=== PATIENT | female | born 1945 | race Caucasian/White ===

== ENCOUNTER 2020-02-17 15:33 | Outpatient (CLI) | payer MEDICARE, OTHER, SELFPAY ==
--- NOTE | 2020-02-17 15:39 | XR_ITS ---
WS: [id number] DEXA (DUAL ENERGY X-RAY ABSORPTIOMETRY) Bone mineral density was performed using a [employer] machine. HISTORY: OSTEOPOROSIS COMPARISON: 07/06/2015 Lumbar spine BMD (L1-L4): 0.740 g/cm2 T score: -3.7 Z score: -1.7 Total hip BMD: Left: 0.750 g/cm2. T score: -2.0 Z score: -0.3 Right: 0.762 g/cm2. T score: -1.9 Z score: -0.2 10 year probability of a major osteoporotic fracture is 30%. Compared to the prior study from 07/06/2015. Lumbar spine bone mineral density has decreased by 3.3%. Bilateral hips bone mineral density has decreased by 1.0%. XR/XR DEXA axial skeleton* [id number] IMPRESSION: OSTEOPOROSIS based upon the WHO classification for females. Significant decreas e in bone mineral density in the lumbar spine since the prior study.
== END 2020-02-17 15:34 | disposition home or self-care (01) ==
LOC: RADWPI 15:38
PROVIDERS: Family Provider Internal Medicine; PCP Internal Medicine; Visit Provider Internal Medicine
DX: M81.0 Age-related osteoporosis without current pathological fracture (principal)
CPT/HCPCS: 77080

== ENCOUNTER 2020-03-11 10:17 | Outpatient (CLI) | payer MEDICARE, OTHER, SELFPAY ==
--- NOTE | 2020-03-11 | MR_ITS ---
WS: [id number] MRI RIGHT KNEE NONCONTRAST TECHNIQUE: Axial PD, coronal PD fat sat, coronal PD, sagittal PD, and sagittal PD fat-sat images obta ined. CLINICAL INFORMATION: RIGHT KNEE INTERNAL DERANGEMENT COMPARISON: None. FINDINGS: Distal quadriceps and patella tendons are intact. Hypertrophic patella. Anterior and posterior crucia te ligaments are normal. Normal medial and lateral meniscus. No acute meniscal tears. Chronic intrasu bstance signal abnormality involving the posterior horn medial meniscus. Chronic thinning of the medi al and lateral meniscus. 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 Associated subchondral edema in the late ral patella. Focal osteochondral defect measuring 10 mm. Normal medial and lateral collateral ligamen ts. Normal popliteal fossa. MR/MR knee RT wo con* [id number] IMPRESSION: 1. Anterior and posterior cruciate ligaments are intact. 2. No acute appearing meniscal tears. 3. 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 4. Normal medial and lateral patellar retinaculum. 5. Normal popliteal fossa.
== END 2020-03-11 10:18 | disposition home or self-care (01) ==
LOC: RADWPI 10:22
PROVIDERS: Family Provider Internal Medicine; PCP Internal Medicine; Visit Provider Internal Medicine
DX: M23.91 Unspecified internal derangement of right knee (principal); M22.41 Chondromalacia patellae, right knee
CPT/HCPCS: 73721

== ENCOUNTER 2020-04-15 06:00 | Outpatient (RCR) | payer MEDICARE, OTHER, SELFPAY | END 2020-04-24 23:59 | disposition home or self-care (01) | LOC: SPT 06:00 | PROVIDERS: PCP Internal Medicine; Referring Provider Orthopaedic Surgery; Visit Provider Orthopaedic Surgery | DX: S80.00XA Contusion of unspecified knee, initial encounter (principal); M22.2X1 Patellofemoral disorders, right knee; X58.XXXA Exposure to other specified factors, initial encounter | CPT/HCPCS: 97110; 97161 ==

== ENCOUNTER 2020-04-25 06:00 | Outpatient (RCR) | payer MEDICARE, OTHER, SELFPAY | END 2020-05-12 23:00 | disposition home or self-care (01) | LOC: SPT 06:00 | PROVIDERS: PCP Internal Medicine; Referring Provider Orthopaedic Surgery; Visit Provider Orthopaedic Surgery | DX: S80.01XD Contusion of right knee, subsequent encounter (principal); M22.2X1 Patellofemoral disorders, right knee | CPT/HCPCS: 97110 ==

== ENCOUNTER 2020-05-27 14:57 | Outpatient (CLI) | payer MEDICARE, OTHER, SELFPAY ==
--- NOTE | 2020-05-27 15:04 | MM_ITS ---
WS: [id number] BILATERAL DIGITAL SCREENING MAMMOGRAPHY WITH CAD CLINICAL INFORMATION: SCREENING HISTORY: Screening mammogram. No current complaints. COMPARISON: March 28, 2019 TECHNIQUE: Bilateral CC and MLO views. FINDINGS: Scattered fibroglandular densities bilaterally. No suspicious focal mass, asymmetry, calcifications, or architectural distortion. No evidence of malignancy. Dystrophic and coarse calcifications left pepe ast are stable. MM/[place] [id number] IMPRESSION: BI-RADS: 2-Benign FOLLOW UP: 1 Year Follow-up Recommend return to annual screening mammography.
== END 2020-05-27 14:58 | disposition home or self-care (01) ==
LOC: RADSHAW 15:02
PROVIDERS: PCP Internal Medicine; Visit Provider Internal Medicine
DX: Z12.31 Encounter for screening mammogram for malignant neoplasm of breast (principal)
CPT/HCPCS: 77067

== ENCOUNTER 2021-08-01 15:00 | Outpatient (CLI) | payer MEDICARE, OTHER, SELFPAY ==
--- NOTE | 2021-08-01 15:22 | MM_ITS ---
WS: [id number] BILATERAL DIGITAL SCREENING MAMMOGRAPHY WITH CAD CLINICAL INFORMATION: SCREEN HISTORY: Screening mammogram. No current complaints. COMPARISON: May 27, 2020 TECHNIQUE: Bilateral CC and MLO views. FINDINGS: Scattered fibroglandular densities bilaterally. Dystrophic calcifications LEFT breast unchanged. No s uspicious focal mass, asymmetry, calcifications, or architectural distortion. No evidence of malignan cy. MM/[place] [id number] IMPRESSION: BI-RADS: 2-Benign FOLLOW UP: 1 Year Follow-up Recommend return to annual screening mammography.
== END 2021-08-01 15:01 | disposition home or self-care (01) ==
LOC: RADSHAW 15:06
PROVIDERS: PCP Internal Medicine; Visit Provider Internal Medicine
DX: Z12.31 Encounter for screening mammogram for malignant neoplasm of breast (principal)
CPT/HCPCS: 77067

== ENCOUNTER 2022-08-09 11:45 | Outpatient (CLI) | payer MEDICARE, OTHER, SELFPAY ==
--- NOTE | 2022-08-09 12:09 | MM_ITS ---
WS: [id number] Bilateral screening 3D tomosynthesis digital mammogram, 08/09/2022 Clinical Data: SCREENING Comparison: 08/01/2021, 05/27/2020, 04/28/2019, 02/05/2018, 01/23/2017, 01/11/2016, 01/04/2015, 01/02/2014, 10/01, 06/28/2011, 06/20/2010, 06/11/2009, 06/03/2008, 05/07/2007, 04/10/2006. Findings: The breast parenchymal pattern shows fibroglandular tissue. No spiculated masses or clustered calcifi cations are seen. There are no secondary signs of carcinoma. There are 2 benign calcifications in the left breast unchanged. MM/[place] [id number] Impression: 1. Negative bilateral mammogram unchanged. 2. Recommend annual screening mammograms. BIRADS: 1-Negative FOLLOW UP: 1 Year Follow-up The CAD mechanical car checker was used.
== END 2022-08-09 11:46 | disposition home or self-care (01) ==
PROVIDERS: PCP Internal Medicine; Visit Provider Internal Medicine
DX: Z12.31 Encounter for screening mammogram for malignant neoplasm of breast (principal)
CPT/HCPCS: 77063; 77067

== ENCOUNTER → 2023-01-11 11:01 | Outpatient (BNVA) | payer MEDICARE, OTHER, SELFPAY | PROVIDERS: PCP Internal Medicine; Visit Provider Podiatrist Foot & Ankle Surgery | DX: M21.612 Bunion of left foot (principal); L90.9 Atrophic disorder of skin, unspecified; G57.92 Unspecified mononeuropathy of left lower limb | CPT/HCPCS: 73630; 99204 ==

== ENCOUNTER 2023-08-13 10:26 | Outpatient (CLI) | payer MEDICARE, SELFPAY ==
--- NOTE | 2023-08-13 10:32 | MM_ITS ---
WS: [id number] BILATERAL SCREENING DIGITAL TOMOSYNTHESIS MAMMOGRAM WITH CAD HISTORY: SCREENING COMPARISON: 08/09/2022, 08/01/2021 and 05/27/2020 Bilateral CC and MLO views with tomosynthesis and synthetic mammography submitted. Computer aided det ection analyzed. Breast composition: There are scattered areas of fibroglandular density. No suspicious masses, microc alcifications or architectural distortion. Benign coarse calcification central LEFT breast. Negative RIGHT breast. IMPRESSION: MM/[place] [id number] BI-RADS: 2-Benign FOLLOW UP: 1 Year Follow-up
== END 2023-08-13 10:27 | disposition home or self-care (01) ==
LOC: RAD 10:27
PROVIDERS: PCP Internal Medicine; Visit Provider Internal Medicine
DX: Z12.31 Encounter for screening mammogram for malignant neoplasm of breast (principal); R92.323 Mammographic fibroglandular density, bilateral breasts; R92.1 Mammographic calcification found on diagnostic imaging of breast
CPT/HCPCS: 77063; 77067

== ENCOUNTER 2024-03-10 11:40 | Outpatient (CLI) | payer MEDICARE, SELFPAY ==
[2024-03-10 11:53] VITALS: BMI 23.1
--- NOTE | 2024-03-10 11:53 | ECG_ITS ---
[facility] Test Date: 2024-03-10 Pat Name: Giuliana Jones Department: Room: Gender: Female System Operator: Hussain Dumont : 1945 Requested By: Davie Barrios Order Number: [id number] Easton MD: Domo Novoa M.D. Interpretive Statements NAME OF STUDY: TREADMILL STRESS TEST INDICATION: [CP, ] EXERCISE DATA: The patient was exercised by Brent protocol. Baseline heart rate was 82 beats per minute. Baseline blood pressure was 101/76 millimeters of mercury. Maximal predicted heart rate was 144 beats per minute. Maximum heart rate achieved was 131, which was 90% of the maximum predicted heart rate. Maximum blood pressure was 168/77 millimeters of mercury. Total exercise time was 6 minutes and 11 seconds. Maximum METs achieved was 10.2. The reason for ending the test was maximal effort achieved. The patient complained of shortness of breath/jaw pain during the stress test, which then resolved at the end of the test. ELECTROCARDIOGRAM: BASELINE: Showed sinus rhythm, normal axis, minimal baseline ST depressions in the inferior leads. [] EXERCISE: At the peak exercise level, [] Significant 2-[address] depressions seen in leads II, III, aVF and in leads V4-V6. RECOVERY: During the recovery period, heart rate dropped appropriately. No significant ST-T changes in the recovery suggestive of ischemia noted. [] CONCLUSION: 1. Exercise capacity is fair 2. Heart rate response was appropriate 3. Blood pressure response was appropriate. 4. Symptoms suggestive of ischemia. 5. Stress test is abnormal and shows ischemia in the inferior and anterolateral/lateral leads. Electronically Signed On 03-11-2024 8:07:00 CDT by Domo Novoa M.D. [id number]
[2024-03-10 12:21] VITALS: BP 125/78; PULSE 67
--- NOTE | 2024-03-10 13:58 | XR_ITS ---
WS: [id number] DEXA (DUAL ENERGY X-RAY ABSORPTIOMETRY) Bone mineral density was performed using a [employer] machine. HISTORY: POSTMENOPAUSAL COMPARISON: 02/17/2020 Lumbar spine BMD (L1-L4): 0.713 g/cm2 T score: -3.9 Z score: -1.9 Total hip BMD: Left: 0.740 g/cm2. T score: -2.1 Z score: -0.2 Right: 0.760 g/cm2. T score: -2.0 Z score: 0.0 10 year probability of a major osteoporotic fracture is 32.0%. Compared to the prior study from 02/17/2020. Lumbar spine bone mineral density has decreased by 3.6%. Bilateral hips bone mineral density has decreased by 0.8%. XR/XR DEXA axial skeleton* [id number] IMPRESSION: OSTEOPOROSIS based upon the WHO classification for females. Significant decrease in bone mineral density within the lumbar spine since the prior study.
== END 2024-03-10 11:41 | disposition home or self-care (01) ==
PROVIDERS: PCP Internal Medicine; Visit Provider Internal Medicine
DX: Z13.820 Encounter for screening for osteoporosis (principal); Z78.0 Asymptomatic menopausal state; M81.0 Age-related osteoporosis without current pathological fracture; R94.39 Abnormal result of other cardiovascular function study
CPT/HCPCS: 77080; 93017

== ENCOUNTER → 2024-03-12 08:29 | Outpatient (BNVA) | payer MEDICARE, SELFPAY | PROVIDERS: PCP Internal Medicine; Visit Provider Internal Medicine | DX: I20.9 Angina pectoris, unspecified (principal) | CPT/HCPCS: 99204 ==

== ENCOUNTER 2024-03-31 08:32 | Inpatient (IN) | payer MEDICARE, SELFPAY ==
[2024-03-31] VITALS (23 sets, daily range): BP systolic 104–164; BP diastolic 62–85; PULSE 66–87; RESP 15–28; TEMP 36.4–36.7; O2SAT 95–98; BMI 23.1; BMI 23.4
--- NOTE | 2024-03-31 06:00 | XACV_ITS ---
Ht: 163 cm Wt: 61 kg BSA: 1.67 m2 Gender: Female : 1945 Any Known Allergies: Other Exam Priority: Routine Procedure(s): Procedure Description: Diagnostic procedure Procedure Description: Coronary Angiography Diagnostic Cath Status: Elective Diagnostic Findings * INDICATION: Worsening angina/ abnormal stress test. * Left Main has no significant disease. * Distal Right Coronary Artery to Right PDA: critical 95% stenosis, CHRISTIANO: 3 flow. * Proximal Left Anterior Descending: significant 80% stenosis, CHRISTIANO: 3 flow. * Mid Left Anterior Descending to Distal Left Anterior Descending: significant 80% stenosis, CHRISTIANO: 3 flow. * Mid Right Coronary Artery to Distal Right Coronary Artery: significant 80% stenosis, CHRISTIANO: 3 flow. * Mid Circumflex: obstructive 70% stenosis, CHRISTIANO: 3 flow. * Coronary angiography shows right dominance. Conclusions 1. Severe multivessel coronary artery disease. Recommendations * We will transfer patient to tertiary care center for heart team evaluation and CABG. * Continue aspirin. Interventional RX Recommendation: CABG Diagnostic RX Recommendation: CABG Anticoagulation: Heparin Pressures Phase:Rest AO : 125 / 67 ( 94 ) @ 9:07:00 AM 110 / 75 ( 93 ) @ 9:10:00 AM 108 / 73 ( 91 ) @ 9:13:00 AM Clinical Evaluation EBL: 5mL-10mL Procedural Details Procedure Consent Obtained. Admit Source: Out Patient. Pre-Procedure Time Out. Identified patient by full name and date of as verbalized by the patient/guarantor. Does the consent match the physician's order: Yes. Accurate & Complete Informed Consent: Yes. Inpatient/Outpatient History & Physical on Chart: Yes. If H&P is completed, is and addenduem needed: No; If yes, is the addendum complete: N/A. Visualize and Verify Site with Patient/Guarantor: N/A. Relevant Radiology Images available: N/A. The risks, benefits, and alternatives of sedation and/or procedure were discussed by physician. The patient agrees to continue. Leroy Agarwal RN, [employer] was relieved by RT Jaylni(R) as monitoring person. Procedure started. [facility] Clinical Fraility Score: 4: Vulnerable. 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 Chest Pain Symptom Assessment: Atypical Angina. Correct patient, site and procedure confirmed by cath team. Current diagnosis: Chest Pain. PERRLA. Strong, equal hand drone pilot bilaterally. Lungs clear x 5 lobes. IV Site on Arrival: 20 gauge in the left anticubital. IV Fluids: 0.9% NaCl at KVO. 0 mL infused prior to laborer powerhouse. Pre Procedural Pulses: bilateral dorsalis pedis was 1+. Pre Procedural Pulses: bilateral posterior tibial was 2+. Pre Procedural Pulses: bilateral radial was 3+. Oxygen started at 2liters/min via nasal canula. Baseline sample Acquired. HR: 76 BPM. Physician arrived. Physician scrubbed in. Immediate Pre-Procedure Time Out. Correct Patient: Yes; Correct Procedure: Yes; Correct Site: Yes; Correct Patient Position: Yes; Correct Supplies: Yes; Dried Flammable Prep: Yes; Blood Products Available: N/A;. Lidocaine 1% infiltrated to the right radial. Arterial access obtained. A 5 pashto TIG catheter in over wire. Multiple views taken of left coronary artery. Catheter redirected to the RCA. Multiple views taken of right coronary artery. Catheter removed over the exchange wire. Physician scrubbed out. Patient's family updated by Dr. Novoa. Side port of sheath attached to heparnized saline flush at KVO to maintain patency. A TR Band was successful obtaining hemostatsis at the Right Radial artery insertion site. Post Procedure: Pulses reassessed and unchanged. PERRLA. Strong, equal hand drone pilot bilaterally. No VTE prophylaxis required. Medication's Wasted: Lidocaine 1% = 18 mL. Medication's Wasted: Nitro = 49.8 mcg. Medication's Wasted: Heparin = 1000 units. Medication's Wasted: Other = Fentanyl 50mcg Versed 1 mg. Total IV fluids: 30 mL. Vital chart was stopped. Complications: None. Post-op diagnosis: CAD. Estimated blood loss: 5mL-10mL. Responsiveness - Normal response to verbal stimuli; alert and oriented, PERRLA. Airway - Unaffected, no intervention required; spontaneous ventilation. Circulation: W/N/L, pulses unchanged. Nausea/Vomiting: No. Procedure completed. Patient transferred by wheelchair to CPRU. Access Site Site: Right Radial artery Sheath Size: 6 Fr Hemostasis Method: TR Band Hemostasis Success: Successful Procedure Medications Start: 7:55 AM Stop: 7:55 AM Medication: Versed 1 mg and Fentanyl 25 mcg Amount: 1 Route: I.V. Start: 8:04 AM Stop: 8:04 AM Medication: Fentanyl Amount: 25 mcg Route: I.V. Start: 8:05 AM Stop: 8:05 AM Medication: Nitrogylcerin Amount: 200 mcg Route: I.A. Start: 8:07 AM Stop: 8:07 AM Medication: Heparin Amount: 5000 units Route: I.V. I, the attending physician, have reviewed and verified all procedure medications. Yes, all medications given per verbal order History/Risk Factors Hypertension: No Dyslipidemia: No Peripheral Arterial Disease (PAD): No Myocardial Infarction (IN): No Obesity: No Renal Disease: No Tobacco Use: Never Prior Interventions PCI: No CABG: No Valve Surgery: No Report Signatures Finalized by Domo Novoa MD on 03/31/2024 10:49 AM
[2024-03-31 06:34] LABS: Basophils % 0.9 %; Eosinophils # 0.1 10^3/uL (0.0-0.8); Eosinophils % 2.8 %; Hematocrit 42.4 % (36-47); Lymphocytes # 1.6 10^3/uL (0.8-4.8); Lymphocytes % 36.3 %; Mean Corpuscular HGB Conc 33.7 g/dL (30-55); Mean Corpuscular Hemoglobin 30.6 pg (27-33); Mean Corpuscular Volume 90.8 fl (85-98); Mean Platelet Volume 10.2 fL (7.4-10.4); Monocytes # 0.5 10^3/uL (0.2-0.9); Monocytes % 11.7 %; Neutrophils # 2.05 10^3/uL (1.8-7.7); Neutrophils % 48.1 %; Nucleated Red Blood Cells % 0 %; Platelet Count 283 10^3/cmm (157-399); Red Blood Count 4.67 10^6/uL (3.85-5.65); Red Cell Distribution Width 12.4 % (12.1-15.1); White Blood Count 4.27 10^3/uL (3.29-11.43)
[2024-03-31 06:48] LABS: Anion Gap 12.9 (5-19); Blood Urea Nitrogen 16 mg/dL (8-23); Calcium 9.1 mg/dL (8.5-10.5); Carbon Dioxide 27 mmol/L (22-29); Chloride 98 mmol/L (98-107); Creatinine Clr Calc Pharmacy 54.1299; Glucose 98 mg/dL (65-115); Osmolality Calculated 279 mOsm/kg (285-295); Potassium 3.9 mmol/L (3.5-5.1); Sodium 134 mmol/L (136-145)
--- NOTE | 2024-03-31 07:51 | P.HPUD_ITS ---
Surgery/Procedure H&P Update DATE OF PROCEDURE: March 31, 2024 DATE H&P PERFORMED: 03/12/24 H&P UPDATE INFORMATION: I have reviewed H&P completed within last 30 days, I have examined patient prior to procedure and No changes to prior documentation PREOP DIAGNOSIS: Worsening angina/ abnormal stress test PRIMARY INDICATION FOR PROCEDURE: Worsening angina/ abnormal stress test PLANNED PROCEDURE: Operation Date: 03/31/24 07:00 Proposed Procedures p Cardiac Catheterization - [facility] w/wo LV & Coros(Left) - Domo Novoa M.D Possible percutaneous coronary intervention PATIENT REASSESSED PRIOR TO SEDATION, WITH NO CHANGE NOTED: Yes PHYSICAL EXAM: alert, oriented x 3, clear to auscultation bilaterally and regular rate & rhythm AIRWAY EVAL/ANESTHESIA PLAN: normal airway, ASA III, Local Anesthesia, Risks, benefits & alternatives of sedation and/or procedure discussed and Patient agrees to continue as planned ADDITIONAL INFORMATION: Moderate sedation
--- NOTE | 2024-03-31 08:47 | PM.MISC ---
Miscellaneous Note Purpose of Documentation: Procedure note Note: Patient has been having worsening chest pain symptoms. She had an nighttime symptoms few times and has been having a resting chest pains now. Stress test was markedly abnormal. Coronary angiogram demonstrated severe multivessel CAD with the proximal (80%) and mid LAD stenosis (80%). Mid left circumflex artery has 70% stenosis. Mid RCA has 70 to 80% stenosis. Distal RCA into PDA has 95 to 99% stenosis. Given severe multivessel disease, worsening angina concerning for unstable angina we will admit patient to hospital and arrange for transfer to have heart team evaluation and CABG.
--- NOTE | 2024-03-31 08:52 | USCV_ITS ---
Giuliana Jones Age: 78 Gender: F : 1945 Exam Date: 03/31/2024 15:20 Ordering Phys: Domo Novoa M.D ([email or web address]) Technologist: Exam Location[place] [facility] [place] Indication: cp BP: 102 / 53 HR: 70 Rhythm: Sinus Technical Quality: Adequate MEASUREMENTS (Male / Female) Normal Values 2D ECHO LV Diastolic Diameter PLAX 3.8 cm 4.2 - 5.9 / 3.9 - 5.3 cm IVS Diastolic Thickness 1.0 cm 0.6 - 1.0 / 0.6 - 0.9 cm IVS Systolic Thickness 1.3 cm LVPW Diastolic Thickness 1.1 cm 0.6 - 1.0 / 0.6 - 0.9 cm LVPW Systolic Thickness 1.0 cm LVOT Diameter 1.9 cm LV Ejection Fraction 2D Teich 69.6 % LV Ejection Fraction MOD 4C 70.1 % LV Ejection Fraction MOD 2C 66.5 % LV Ejection Fraction 2C AL 65.9 % LA Diameter 2.9 cm RA Systolic Volume 4C AL 17.6 ml RA Systolic Volume 4C MOD 16.2 ml Aorta at Sinotubular Diameter 2.8 cm M-MODE LA Ao Ratio MM 1.2 AV Cusp Separation MM 2.4 cm DOPPLER AV Peak Velocity 122.0 cm/s LVOT Peak Velocity 104.0 cm/s AV Area Cont Eq vti 2.5 cm squared AV Area Cont Eq pk 2.4 cm squared MV Peak Velocity 103.0 cm/s MV Area PHT 3.0 cm squared Mitral E to A Ratio 0.9 TV Peak Velocity 185.0 cm/s TR Peak Velocity 189.0 cm/s TR Peak Gradient 14.3 mmHg TV Peak E Velocity 72.0 cm/s Right Atrial Pressure 3.0 mmHg Pulmonary Artery Systolic Pressu 17.3 mmHg PV Peak Velocity 95.0 cm/s FINDINGS Left Ventricle Left ventricle is normal in size. LV systolic function is normal with EF of 55 to 60%. No regional wall motion abnormalities are seen. Grade 1 diastolic dysfunction Right Ventricle Normal in size and function. Right Atrium Normal in size. Left Atrium Normal in size Mitral Valve Structurally normal mitral valve. Mild mitral regurgitation. Aortic Valve Structurally normal aortic valve. No significant stenosis or regurgitation. Tricuspid Valve Mild tricuspid regurgitation. Pulmonary artery systolic pressure is normal. Pulmonic Valve Not well-visualized. Pericardium Normal. Aorta Normal in size IVC Not well visualized CONCLUSIONS LV systolic function is normal with EF of 55 to 60%. Grade 1 diastolic dysfunction. Mild mitral regurgitation. Mild tricuspid regurgitation. No comparison studies are available. Domo Novoa MD (Electronically Signed) Final Date: 01 April 2024 08:03 S
[2024-03-31] MEDS: sodium chloride 0.9% 1,000 ML 100 ML IV (09:10)
--- NOTE | 2024-03-31 10:21 | ECG_ITS ---
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 Measurements Intervals Kyle Rate: 75 P: 20 ND: 196 QRS: 1 QRSD: 80 T: 28 QT: 365 QTc: 408 Interpretive Statements SINUS RHYTHM POSSIBLE ANTERIOR MYOCARDIAL INFARCTION , OF INDETERMINATE AGE [30 ms Q WAVE IN V3/V4, OR R < 0.2 mV IN V4] MODERATE T-WAVE ABNORMALITY, CONSIDER LATERAL ISCHEMIA [-0.1+ mV T-WAVE IN I/aVL/V5/V6] No previous ECG available for comparison Electronically Signed On 04-01-2024 01:31:38 CDT by Ferny Gomez M.D. [id number]
--- NOTE | 2024-03-31 10:32 | PC.NURSE ---
received from cardiac labor specialist into room 112-2,via w/c at 0910.report received.pt is alert and oriented x 4.denies pain at present.sr on monitor.right radial tr band on and inflated.right hand is warm to touch and with brisk capillary refill.palpable pulse noted distal to tr band.no hematoma formation noted.pt instructed in activity restrictions s/p radial artery procedure and instructed to notify staff for any bleeding,pain,numbness,sob..or for any concerns at all.pt verb understanding of instructions
[2024-03-31 10:39] LABS: Troponin(5th) Baseline < 6 ng/L (0-10)
[2024-03-31 12:30] LABS: Troponin 5 2HR 6.07 ng/L (0-10); Troponin 5 2HR Delta 0.07001 ABS# (0-10)
[2024-03-31] MEDS: oxybutynin 5 mg Tablet 2.5 MG PO (12:45)
[2024-03-31 15:44] LABS: Troponin 5 6HR 7.73 ng/L (0-10); Troponin 5 6HR Delta 1.73001 ng/L (0-12)
[2024-03-31] MEDS: acetaminophen 325 mg Tablet 650 MG PO (16:47)
[2024-03-31] MEDS: TRAMadol 50 mg Tablet PO (21:57)
[2024-03-31] MEDS: atorvastatin 40 mg Tablet PO (21:58)
[2024-04-01] VITALS (8 sets, daily range): BP systolic 107–140; BP diastolic 58–94; PULSE 59–99; RESP 12–22; TEMP 36.4–36.8; O2SAT 95–98
[2024-04-01 04:33] LABS: Basophils % 0.8 %; Eosinophils # 0.1 10^3/uL (0.0-0.8); Eosinophils % 2.5 %; Hematocrit 39.8 % (36-47); Lymphocytes # 1.3 10^3/uL (0.8-4.8); Lymphocytes % 25.6 %; Mean Corpuscular HGB Conc 32.7 g/dL (30-55); Mean Corpuscular Hemoglobin 30.5 pg (27-33); Mean Corpuscular Volume 93.4 fl (85-98); Mean Platelet Volume 10.5 fL (7.4-10.4); Monocytes # 0.5 10^3/uL (0.2-0.9); Monocytes % 10.4 %; Neutrophils # 3.09 10^3/uL (1.8-7.7); Neutrophils % 60.5 %; Nucleated Red Blood Cells % 0 %; Platelet Count 267 10^3/cmm (157-399); Red Blood Count 4.26 10^6/uL (3.85-5.65); Red Cell Distribution Width 12.5 % (12.1-15.1); White Blood Count 5.11 10^3/uL (3.29-11.43)
[2024-04-01 04:48] LABS: Anion Gap 16.5 (5-19); Blood Urea Nitrogen 15 mg/dL (8-23); Calcium 8.5 mg/dL (8.5-10.5); Carbon Dioxide 22 mmol/L (22-29); Chloride 104 mmol/L (98-107); Creatinine Clr Calc Pharmacy 52.3982; Glucose 105 mg/dL (65-115); Osmolality Calculated 287 mOsm/kg (285-295); Potassium 4.5 mmol/L (3.5-5.1); Sodium 138 mmol/L (136-145)
[2024-04-01] MEDS: acetaminophen 325 mg Tablet 650 MG PO ×2 (05:17→18:11)
[2024-04-01] MEDS: pantoprazole DR 40 mg Tablet PO (07:37)
[2024-04-01] MEDS: oxybutynin 5 mg Tablet 2.5 MG PO ×2 (09:48→18:08)
[2024-04-01] MEDS: aspirin 81 mg EC Tablet PO (09:48)
--- NOTE | 2024-04-01 10:17 | PC.CHAP ---
Pastoral Care Encounter/Spiritual Assessment Type of Contact [] Declined note taker visit [] Patient/Family/Request visit [] Outpatient visit [] Follow-up visit [] Physician referral [] Code/Alert [x] Routine visit [] Staff referral [] Actively dying [] Patient sleeping [] Family support [] [] Out of room [] Palliative care [] [] Receiving care in room [] Pre-surgical visit [] Trauma [] Long length of stay [] ICU visit [] Other: Relational/Emotional Strength [x] Patient feels connected with others/family/visitors/staff [] Distress [] Loneliness/isolation [] Abandonment Spirituality of Patient [x] Person of Angela [] Attends Scientologist of their Angela [x] Believes in Prayer [] Reads Bible or Latter-Day materials [] There are Spiritual issues to be addressed Creamery Worker Interventions [x] Prayer [x] Active listening [] Non-anxious presence [x] Spiritual/emotional support [] Crisis/trauma care [] Spiritual counseling [] Bereavement support [] Provided bereavement packet [] Provided Bible/devotional materials [] Provided toy/stuffed animal, coloring book to patient or family member [] Provided Communion [] Anointing/[place] [] Salvation [x] Completed spiritual assessment [] Other: Impact on Illness or Injury [] Angry [] Fearful [] Anxious [] Often cries [] Exhaustion [] Unable to work [] Unable to attend adventism [] Unable to walk/stand [] Unable to read [] Unable to drive [] Unable to eat/drink [] Unable to sleep [] Unable to be with family [] Patient intubated [] Other: Summary Time spent with patient 5 min
--- NOTE | 2024-04-01 18:02 | P.PN_ITS ---
Subjective 2 Subjective: Patient is stable. Had chest tightness last night. Currently chest pain free. Vitals/I&O/Wt Last Vital Signs Temp 98.2 F 04/01/24 16:00 Pulse 62 04/01/24 16:00 Resp 15 04/01/24 16:00 BP 107/58 04/01/24 16:00 Pulse Ox 97 04/01/24 16:00 O2 Del Method Room Air 04/01/24 16:00 04/01/24 04/01/24 04/01/24 06:59 14:59 22:59 Intake Total 960 / 960 Balance 960 / 960 Weight last 48 hrs Weight 137 lb 6.4 oz Weight 132 lb 8 oz Weight 135 lb Physical Exam 2 Narrative: GENERAL: Patient is alert, awake and oriented x3. [] NECK: No jugular vein distension. [] HEENT: No cyanosis. No icterus. No pallor. [] HEART: Regular S1 and S2. No murmur, rub or gallop. [] LUNGS: Clear to auscultate bilaterally. [] CENTRAL NERVOUS SYSTEM: Grossly nonfocal. [] EXTREMITIES: Lower extremities with 1+ edema bilaterally. Data 04/01/24 03:29 04/01/24 03:29 A&P Assessment and plan (1) Worsening angina: (2) Coronary artery disease: Plan Patient is presented with worsening anginal symptoms and coronary angiogram showed no severe multivessel CAD. She has been accepted for CABG at [facility]. Awaiting transfer pending bed availability. Continue aspirin at hide intensity statin. PRN nitro. If pain becomes more persistent, we will start nitro gtt. Troponins have not trended up significantly and echo shows normal LV function Attestations 2 Medical Necessity Statement*: Care expected to cross 2 midnights. Patient presented for outpatient coronary angiogram however has been having worsening symptoms of chest pain. Coronary angiogram shows a severe multivessel CAD. Awaiting transfer to tertiary care center for CABG. Coding Level of Care Code Acute Code for Chg Fwd Diagnoses Worsening angina I20.0 Coronary artery disease I25.10
[2024-04-01] MEDS: atorvastatin 40 mg Tablet PO (21:01)
[2024-04-01] MEDS: TRAMadol 50 mg Tablet PO (21:01)
[2024-04-01] MEDS: alum-mag-hydroxide-sime 30 mL UDC PO (21:09)
[2024-04-02] VITALS (7 sets, daily range): BP systolic 103–151; BP diastolic 51–94; PULSE 64–103; RESP 16–27; TEMP 36.7–37.1; O2SAT 95–98
[2024-04-02] MEDS: acetaminophen 325 mg Tablet 650 MG PO ×2 (06:11→14:17)
[2024-04-02] MEDS: pantoprazole DR 40 mg Tablet PO (08:38)
[2024-04-02] MEDS: aspirin 81 mg EC Tablet PO (08:38)
[2024-04-02] MEDS: oxybutynin 5 mg Tablet 2.5 MG PO (08:38)
--- NOTE | 2024-04-02 13:55 | P.TS_ITS ---
Transfer Summary Providers Date of Admission: 03/31/24 08:32 Date of Discharge/Transfer: 04/02/24 Attending Provider at Admission: Domo Novoa M.D Attending Provider at Transfer: Domo Novoa M.D Primary Care Provider: Davie Mejía DO Transfer Plans: Anticipated date of transfer: 04/02/24 . Receiving Facility: [facility] . Diagnoses at Discharge Discharge Diagnosis (1) Worsening angina: Status: Acute (2) Coronary artery disease: Status: Acute Reason for Visit Reason for Visit R94.39 Brief History: 78 year old with worsening chest pain symptoms and abnormal stress test here for coronary angiogram. Hospital Course Hospital Course Coronary angiogram demonstrated severe multivessel CAD. As patient has been having worsening symptoms even during the night, we admitted her to the hospital. She will be transferred to [facility] for CABG evaluation. Stayed stable hospitalization. Echo shows normal LV systolic function. Physical Exam Narrative: GENERAL: Patient is alert, awake and oriented x3. [] NECK: No jugular vein distension. [] HEENT: No cyanosis. No icterus. No pallor. [] HEART: Regular S1 and S2. No murmur, rub or gallop. [] LUNGS: Clear to auscultate bilaterally. [] CENTRAL NERVOUS SYSTEM: Grossly nonfocal. [] EXTREMITIES: Lower extremities with 1+ edema bilaterally. TS Data Studies Completed and Pending Completed Studies During Hospitalization Category Date Time Status [employer] request for service Routine Exams 03/31/24 06:00 Completed CV. echo complete* [id number] Routine Ultrasound 03/31/24 08:52 Completed Laboratory Last Values WBC 5.11 10^3/uL (3.29-11.43) 04/01/24 03:29 RBC 4.26 10^6/uL (3.85-5.65) 04/01/24 03:29 Hgb 13.00 g/dL (11.27-16.99) 04/01/24 03:29 Hct 39.8 % (36-47) 04/01/24 03:29 MCV 93.4 fl (85-98) 04/01/24 03:29 MCH 30.5 pg (27-33) 04/01/24 03:29 MCHC 32.7 g/dL (30-55) 04/01/24 03:29 RDW 12.5 % (12.1-15.1) 04/01/24 03:29 Plt Count 267 10^3/cmm (157-399) 04/01/24 03:29 MPV 10.5 fL (7.4-10.4) H 04/01/24 03:29 Neut % (Auto) 60.5 % 04/01/24 03:29 Lymph % (Auto) 25.6 % 04/01/24 03:29 Izard % (Auto) 10.4 % 04/01/24 03:29 Eos % (Auto) 2.5 % 04/01/24 03:29 Baso % (Auto) 0.8 % 04/01/24 03:29 Neut # (Auto) 3.09 10^3/uL (1.8-7.7) 04/01/24 03:29 Lymph # (Auto) 1.3 10^3/uL (0.8-4.8) 04/01/24 03:29 Izard # (Auto) 0.5 10^3/uL (0.2-0.9) 04/01/24 03:29 Eos # (Auto) 0.1 10^3/uL (0.0-0.8) 04/01/24 03:29 Baso # (Auto) 0.0 10^3/uL (0.0-0.1) 04/01/24 03:29 Nucleated RBC % (auto) 0 % 04/01/24 03:29 Nucleated RBCs # 0.0 /100WBC 04/01/24 03:29 Sodium 138 mmol/L (136-145) 04/01/24 03:29 Potassium 4.5 mmol/L (3.5-5.1) 04/01/24 03:29 Chloride 104 mmol/L (98-107) 04/01/24 03:29 Carbon Dioxide 22 mmol/L (22-29) 04/01/24 03:29 Anion Gap 16.5 (5-19) 04/01/24 03:29 BUN 15 mg/dL (8-23) 04/01/24 03:29 Creatinine 0.4 mg/dL (0.5-0.9) L 04/01/24 03:29 GFR Calculation Not Reportable 04/01/24 03:29 Glucose 105 mg/dL (65-115) 04/01/24 03:29 Calculated Osmolality 287 mOsm/kg (285-295) 04/01/24 03:29 Calcium 8.5 mg/dL (8.5-10.5) 04/01/24 03:29 Troponin T Baseline < 6 ng/L (0-10) 03/31/24 09:19 Troponin T 120 Minute 6.07 ng/L (0-10) 03/31/24 11:02 Delta Troponin T 0.83338 ABS# (0-10) 03/31/24 11:02 Troponin T Hi Sens 6Hr 7.73 ng/L (0-10) 03/31/24 15:12 Troponin T Hi Sens 6Hr Delta 1.27241 ng/L (0-12) 03/31/24 15:12 Recent Clincial Data Last Vital Signs Temp 98.0 F 04/02/24 11:20 Pulse 103 H 04/02/24 11:20 Resp 24 H 04/02/24 11:20 BP 151/94 04/02/24 11:20 Pulse Ox 95 04/02/24 11:20 O2 Del Method Nasal Cannula 04/02/24 11:20 Vital Signs Temp Pulse Resp BP Pulse Ox O2 Del Method 04/02/24 11:20 98.0 F 103 H 24 H 151/94 95 Nasal Cannula 04/02/24 06:56 98.0 F 72 27 H 131/75 98 Room Air 04/02/24 06:00 66 04/02/24 04:00 98.8 F 64 16 129/65 97 Room Air Intake & Output/Weight 03/31/24 04/01/24 04/02/24 04/03/24 06:59 06:59 06:59 06:59 Intake Total 1360 / 1360 1020 / 1020 600 / 600 Balance 1360 / 1360 1020 / 1020 600 / 600 Weight 135 lb 137 lb 6.4 oz 133 lb Vitals Last Vital Signs Temp 98.0 F 04/02/24 11:20 Pulse 103 H 04/02/24 11:20 Resp 24 H 04/02/24 11:20 BP 151/94 04/02/24 11:20 Pulse Ox 95 04/02/24 11:20 O2 Del Method Nasal Cannula 04/02/24 11:20 TS Medications Medications Acetaminophen (Acetaminophen 325 Mg Tablet) 650 mg PO Q6H PRN PRN Reason: MILD PAIN Last Admin: 04/02/24 06:11 Dose: 650 mg Al Hydrox/Mg Hydrox/Simethicone (Ntdw-Exk-Gieskokdr-Damian 30 Ml Udc) 30 ml PO Q15M PRN PRN Reason: INDIGESTION Last Admin: 04/01/24 21:09 Dose: 30 ml Aspirin (Aspirin 81 Mg Ec Tablet) 81 mg PO DAILY [facility] Last Admin: 04/02/24 08:38 Dose: 81 mg Atorvastatin Calcium (Atorvastatin 40 Mg Tablet) 40 mg PO BEDTIME [facility] Last Admin: 04/01/24 21:01 Dose: 40 mg Atropine Sulfate (Atropine 1 Mg/Ml Sdv 1 Ml) 0.5 mg IVP PRN PRN PRN Reason: Symptomatic bradycardia Fentanyl (Fentanyl 50 Mcg/Ml Inj 2ml) 50 mcg IVP PRN PRN PRN Reason: Prior to sheath removal Sodium Chloride (Sodium Chloride 0.9%) 1,000 mls @ 100 mls/hr IV .Q10H [facility] Last Admin: 04/02/24 10:23 Dose: Not Given Magnesium Hydroxide (Magnesium Hydroxide 30 Ml Udc) 30 ml PO DAILY PRN PRN Reason: CONSTIPATION Naloxone HCl (Naloxone 0.4 Mg/Ml Sdv) 0.1 mg IVP Q2M PRN PRN Reason: RESPIRATORY RATE < 8/MIN Nitroglycerin (Nitroglycerin 0.4 Mg Sublingual Tablet) 0.4 mg SUBLINGUAL Q5M PRN PRN Reason: CHEST PAIN Oxybutynin Chloride (Oxybutynin 5 Mg Tablet) 2.5 mg PO BID [facility] Last Admin: 04/02/24 08:38 Dose: 2.5 mg Pantoprazole Sodium (Pantoprazole Dr 40 Mg Tablet) 40 mg PO DAILY [facility] Last Admin: 04/02/24 08:38 Dose: 40 mg Temazepam (Temazepam 15 Mg Capsule) 15 mg PO BEDTIME PRN PRN Reason: INSOMNIA Tramadol HCl (Tramadol 50 Mg Tablet) 50 mg PO BEDTIME [facility] Last Admin: 04/01/24 21:01 Dose: 50 mg Discontinued Medications Aspirin (Aspirin 325 Mg Tablet) 325 mg PO ONCE ONE Stop: 03/31/24 06:01 Last Admin: 03/31/24 06:45 Dose: Not Given Diphenhydramine HCl (Diphenhydramine 50 Mg Capsule) 50 mg PO ONCE ONE Stop: 03/31/24 06:01 Last Admin: 03/31/24 06:45 Dose: Not Given Fentanyl (Fentanyl 50 Mcg/Ml Inj 2ml) Confirm Administered Dose 100 mcg .ROUTE .STK-MED ONE Stop: 03/31/24 06:35 Heparin Sodium (Porcine) (Heparin 5,000 Unit/Ml Inj 1 Ml) Confirm Administered Dose 10,000 unit .ROUTE .STK-MED ONE Stop: 03/31/24 06:35 Sodium Chloride (Sodium Chloride 0.9%) 1,000 mls @ 50 mls/hr IV .Q20H ONE Stop: 04/01/24 01:59 Last Admin: 03/31/24 06:45 Dose: Not Given Lidocaine HCl (Xylocaine) Confirm Administered Dose 20 mls @ as directed .ROUTE .STK-MED ONE Stop: 03/31/24 06:35 Sodium Chloride (Sodium Chloride 0.9%) Confirm Administered Dose 1,000 mls @ as directed .ROUTE .STK-MED ONE Stop: 03/31/24 06:35 Midazolam HCl (Midazolam 1 Mg/Ml Inj 2 Ml) Confirm Administered Dose 2 mg .ROUTE .STK-MED ONE Stop: 03/31/24 06:35 Nitroglycerin (Nitroglycerin 5 Mg/Ml Sdv 10 Ml) Confirm Administered Dose 50 mg .ROUTE .STK-MED ONE Stop: 03/31/24 06:35 Allergies alendronate sodium [From Fosamax] Allergy (Severe, Verified 03/12/24 08:35) ALGY-Swell Lip/Tongue/Throat Anesthetics - Amide Type - Select A Allergy (Severe, Verified 03/12/24 08:35) Unresponsive denosumab [From Prolia] Allergy (Severe, Verified 03/12/24 08:35) ALGY-Difficulty Breathing topiramate [From Topamax] Allergy (Severe, Verified 03/12/24 08:35) Unresponsive codeine Allergy (Mild, Verified 03/12/24 08:35) ADR-Dizziness dexlansoprazole [From Dexilant] Allergy (Mild, Verified 03/12/24 08:35) ADR-Diarrhea pollen extracts Allergy (Mild, Verified 03/12/24 08:35) ADR-Headache ranitidine Allergy (Mild, Verified 03/12/24 08:35) ADR-Gastrointestinal Upset Home Medications acetaminophen 500 mg capsule 500 mg PO Q6H PRN Pain (Scale Score 1-3) 03/30/22 [History Confirmed 03/28/24] nipgybtobcn-fum-vnkfmtfep-hrb 149-hyalur 500 mg-500 mg-66.7 mg tablet (Otxsbgtcnsg-Yllnqrinits-CMN (with antiox)) 1 tab PO DAILY 03/30/22 [History Confirmed 03/28/24] lidocaine HCl 4 % topical cream (Aspercreme (lidocaine HCl)) 1 applic topical BID PRN Pain 03/30/22 [History Confirmed 03/28/24] meclizine 25 mg tablet (Dramamine (meclizine)) 25 mg PO BID PRN Dizziness Or Vertigo 03/30/22 [History Confirmed 03/28/24] oxybutynin chloride 5 mg tablet 5 mg PO BID 03/30/22 [History Confirmed 03/28/24] pantoprazole 40 mg tablet,delayed release 40 mg PO DAILY 03/30/22 [History Confirmed 03/28/24] phenylephrine HCl 10 mg tablet 10 mg PO Q6H PRN allergies 03/30/22 [History Confirmed 03/28/24] potassium citrate 99 mg capsule 1 mg PO DAILY 03/30/22 [History Confirmed 03/31/24] tramadol 50 mg tablet 50 mg PO DAILY 03/30/22 [History Confirmed 03/28/24] aspirin 81 mg tablet,delayed release (Adult Aspirin Regimen) 81 mg PO DAILY #90 tabs 03/12/24 [Rx Confirmed 03/28/24] loratadine 10 mg tablet 10 mg PO DAILY PRN allergies 03/28/24 [History Confirmed 03/28/24] Discharge Plan Discharge Patient Disposition: Xfer Other Condition: Stable Prescriptions: No Action tramadol 50 mg tablet 50 mg PO DAILY acetaminophen 500 mg capsule 500 mg PO Q6H PRN (Reason: Pain (Scale Score 1-3)) oxybutynin chloride 5 mg tablet 5 mg PO BID phenylephrine HCl 10 mg tablet 10 mg PO Q6H PRN (Reason: allergies) meclizine [Dramamine (meclizine)] 25 mg tablet 25 mg PO BID PRN (Reason: Dizziness Or Vertigo) lidocaine HCl [Aspercreme (lidocaine HCl)] 4 % cream 1 applic topical BID PRN (Reason: Pain) vfbyuhvt-rmx-lczad-oxc659-jeni [Xipezs-Ssmxq-PZW (with antiox)] 500-500-66.7 mg tablet 1 tab PO DAILY potassium citrate 99 mg capsule 1 mg PO DAILY pantoprazole 40 mg tablet,delayed release (DR/EC) 40 mg PO DAILY aspirin [Adult Aspirin Regimen] 81 mg tablet,delayed release (DR/EC) 81 mg PO DAILY Qty: 90 3RF loratadine 10 mg Tablet 10 mg PO DAILY PRN (Reason: allergies) Discharge Orders: Discharge Order (Routine); Ordered 04/02/24 Ordered By: Domo Novoa Patient Instructions: Opioid Safety Transfer Attestations Time Spent in Transfer Care: less than 30 min Quality Metrics Clinical Quality Measures [ No reported AMI, CVA or VTE this stay] Coding Level of Care Code Acute Code for Chg Fwd Diagnoses Worsening angina I20.0 Coronary artery disease I25.10
--- NOTE | 2024-04-02 15:36 | PC.NURSE ---
Patient departed for transfer to [facility] via [facility] ambulance. Report called to AMINA Nix at [facility]. Patient family notified and all patient belongings sent with her.
== END 2024-04-02 15:38 | disposition short-term general hospital (02) | DRG 287 ==
LOC: CSU 08:34
PROVIDERS: Admitting Provider Internal Medicine; PCP Internal Medicine; Visit Provider Internal Medicine
PROC: B2111ZZ Fluoroscopy of Multiple Coronary Arteries using Low Osmolar Contrast (ICD-10-PCS; principal; 2024-03-31 07:00)
DX: I25.110 Atherosclerotic heart disease of native coronary artery with unstable angina pectoris (principal); Z79.82 Long term (current) use of aspirin
CPT/HCPCS: 36415; 80048; 84484; 85025; 93005; 93306; 93454; 96374; 96376; 99152; 99153; C1769; C1887; C1894; J1644; J2250; J3010; J3490; J7030; Q0163; Q9967

== ENCOUNTER 2024-05-05 09:17 | Outpatient (RCR) | payer MEDICARE, SELFPAY | END 2024-05-24 23:59 | disposition home or self-care (01) | LOC: CR 09:17 | PROVIDERS: Family Provider Thoracic Surgery (Cardiothoracic Vascular Surgery); PCP Internal Medicine; Visit Provider Internal Medicine | DX: Z95.1 Presence of aortocoronary bypass graft (principal) | CPT/HCPCS: 93798 ==

== ENCOUNTER 2024-05-26 08:17 | Outpatient (RCR) | payer MEDICARE, SELFPAY | END 2024-06-24 23:59 | disposition home or self-care (01) | LOC: CR 08:17 | PROVIDERS: Family Provider Thoracic Surgery (Cardiothoracic Vascular Surgery); PCP Internal Medicine; Visit Provider Internal Medicine | DX: Z95.5 Presence of coronary angioplasty implant and graft (principal) | CPT/HCPCS: 93798 ==

== ENCOUNTER → 2024-06-02 13:41 | Outpatient (BNVA) | payer MEDICARE, SELFPAY | PROVIDERS: Family Provider Thoracic Surgery (Cardiothoracic Vascular Surgery); PCP Internal Medicine; Visit Provider Nurse Practitioner Family | DX: I25.10 Atherosclerotic heart disease of native coronary artery without angina pectoris (principal); R00.1 Bradycardia, unspecified; I44.0 Atrioventricular block, first degree | CPT/HCPCS: 93005; 99214 ==

== ENCOUNTER 2024-06-25 08:13 | Outpatient (RCR) | payer MEDICARE, SELFPAY | END 2024-07-25 23:59 | disposition home or self-care (01) | LOC: CR 08:13 | PROVIDERS: Family Provider Thoracic Surgery (Cardiothoracic Vascular Surgery); PCP Internal Medicine; Visit Provider Internal Medicine | DX: Z95.1 Presence of aortocoronary bypass graft (principal) | CPT/HCPCS: 93798 ==

== ENCOUNTER 2024-07-28 13:07 | Outpatient (RCR) | payer MEDICARE, SELFPAY | END 2024-08-22 23:59 | disposition home or self-care (01) | LOC: CR 13:07 | PROVIDERS: Family Provider Thoracic Surgery (Cardiothoracic Vascular Surgery); PCP Internal Medicine; Visit Provider Internal Medicine | DX: Z95.1 Presence of aortocoronary bypass graft (principal) | CPT/HCPCS: 93798 ==

== ENCOUNTER → 2024-08-15 09:05 | Outpatient (BNVA) | payer MEDICARE, SELFPAY | PROVIDERS: Family Provider Thoracic Surgery (Cardiothoracic Vascular Surgery); PCP Internal Medicine; Visit Provider Internal Medicine | DX: I25.10 Atherosclerotic heart disease of native coronary artery without angina pectoris (principal); Z95.1 Presence of aortocoronary bypass graft | CPT/HCPCS: 99214 ==

== ENCOUNTER 2024-09-01 13:25 | Outpatient (CLI) | payer MEDICARE, SELFPAY ==
--- NOTE | 2024-09-01 13:39 | MM_ITS ---
WS: [id number] BILATERAL 3D TOMOSYNTHESIS DIGITAL SCREENING MAMMOGRAPHY WITH CAD CLINICAL INFORMATION: SCREENING HISTORY: Screening mammogram. No current complaints. COMPARISON: 08/13/2023 TECHNIQUE: Bilateral CC and MLO views. FINDINGS: Scattered fibroglandular densities bilaterally. No suspicious focal mass, asymmetry, calcifications, or architectural distortion. No evidence of malignancy. Dystrophic calcifications LEFT breast. MM/MM scr BI tomosynthesis [id number] IMPRESSION: DENSITY: There are scattered areas of fibroglandular density. BI-RADS: 2 - Benign. FOLLOW UP: 1 Year Follow-up Recommend return to annual screening mammography.
== END 2024-09-01 13:26 | disposition home or self-care (01) ==
LOC: RAD 13:27
PROVIDERS: Family Provider Thoracic Surgery (Cardiothoracic Vascular Surgery); PCP Family Medicine; Visit Provider Family Medicine
DX: Z12.31 Encounter for screening mammogram for malignant neoplasm of breast (principal); R92.323 Mammographic fibroglandular density, bilateral breasts; R92.1 Mammographic calcification found on diagnostic imaging of breast
CPT/HCPCS: 77063; 77067

== ENCOUNTER → 2024-09-05 08:41 | Outpatient (BNVA) | payer MEDICARE, SELFPAY | PROVIDERS: Family Provider Thoracic Surgery (Cardiothoracic Vascular Surgery); PCP Family Medicine; Visit Provider Nurse Practitioner Family | DX: L57.8 Other skin changes due to chronic exposure to nonionizing radiation (principal); D22.4 Melanocytic nevi of scalp and neck; L81.4 Other melanin hyperpigmentation; D22.39 Melanocytic nevi of other parts of face; D48.5 Neoplasm of uncertain behavior of skin | CPT/HCPCS: 11102; 99213 ==

== ENCOUNTER → 2024-10-08 14:34 | Outpatient (BNVA) | payer MEDICARE, SELFPAY | PROVIDERS: Family Provider Thoracic Surgery (Cardiothoracic Vascular Surgery); PCP Family Medicine; Visit Provider Dermatology | DX: D03.62 Melanoma in situ of left upper limb, including shoulder (principal) | CPT/HCPCS: 11603; 12032 ==

== ENCOUNTER → 2024-10-29 11:48 | Outpatient (BNVA) | payer MEDICARE, SELFPAY | PROVIDERS: Family Provider Thoracic Surgery (Cardiothoracic Vascular Surgery); PCP Family Medicine; Referring Provider Family Medicine; Visit Provider Internal Medicine | DX: L65.9 Nonscarring hair loss, unspecified (principal); M81.0 Age-related osteoporosis without current pathological fracture | CPT/HCPCS: 36415; 80053; 82306; 82310; 83970; 84439; 84443 ==

== ENCOUNTER → 2025-01-01 11:21 | Outpatient (BNVA) | payer MEDICARE, SELFPAY | PROVIDERS: Family Provider Thoracic Surgery (Cardiothoracic Vascular Surgery); PCP Family Medicine; Visit Provider Internal Medicine | DX: M81.0 Age-related osteoporosis without current pathological fracture (principal); E55.9 Vitamin D deficiency, unspecified | CPT/HCPCS: 99214 ==

== ENCOUNTER 2025-01-27 07:45 | Observation (INO) | payer MEDICARE, SELFPAY ==
[2025-01-27] VITALS (29 sets, daily range): BP systolic 81–150; BP diastolic 46–76; PULSE 63–142; RESP 10–22; TEMP 36.4–36.7; O2SAT 90–98; BMI 24.0
--- NOTE | 2025-01-27 07:49 | ECG_ITS ---
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 Measurements Intervals [place] Rate: 155 P: 0 CT: 0 QRS: 43 QRSD: 89 T: 199 QT: 246 QTc: 395 Interpretive Statements ATRIAL FLUTTER/TACHYCARDIA WITH RAPID VENTRICULAR RESPONSE ST DEVIATION AND MODERATE T-WAVE ABNORMALITY, CONSIDER LATERAL ISCHEMIA [-0.1+ mV T-WAVE IN I/aVL/V5/V6] CRITICAL TEST RESULT Compared to ECG 06/02/2024 13:57:02 Possible ischemia now present Sinus bradycardia no longer present First degree AV block no longer present T-wave abnormality still present Electronically Signed On 01-27-2025 23:01:43 CDT by Ferny Gomez M.D. [email or web address]
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
--- OUTSIDE RECORDS SUMMARY | 2025-01-27 07:50 | XMS_ITS | Clinical Summary ---
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 Social History Tobacco Use Types Packs/Day Years Used Date Smoking Tobacco: Never Smokeless Tobacco: Never Alcohol Use Standard Drinks/Week Comments No 0 (1 standard drink = 0.6 oz pur e alcohol) Comments Unknown Sex and Gender Information Value Date Recorded Sex Assigned at Not on file 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
--- OUTSIDE RECORDS SUMMARY | 2025-01-27 07:50 | XMS_ITS | Clinical Summary ---
Author Organization [facility] Address [address] [place] [address] Care Team Providers Care Rubber Compounder Formulator Name Role Phone Brent Schafer MD Primary Care Provider + Allergies Active Allergy Reactions Criticality Noted Date Comments Codeine Other (See Comments) 09/23/2012 Pt is very senative to medicines Tramadol Nausea and Vomiting 02/18/2013 Medications ibuprofen (MOTRIN) 200 mg Oral tabletIndication s:Hand pain,Numbness Take 200 mg by mouth every 6 hours as needed. Active loratadine (CLARITIN) 10 mg Oral tabletIndication s:Boutonniere deformity of finger Take 10 mg by mouth daily. Active RANITIDINE HCL (ZANTAC ORAL)Indications :Boutonniere deformity of finger Take by mouth daily. 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 Gender Identity Not on file Sexual Orientation Not on file Last Filed Vital Signs Vital Sign Reading Time Taken Comments Blood Pressure 112/66 02/18/2013 8:52 AM CDT Pulse 62 02/18/2013 8:52 AM CDT Temperature - - Respiratory Rate - - Oxygen Saturation - - Inhaled Oxygen Concentration - - Weight 55.3 kg (122 lb) 02/18/2013 8:52 AM CDT Height 163.8 cm (5' 4.5 ) 02/18/2013 8:52 AM CDT Body Mass Index 20.62 02/18/2013 8:52 AM CDT Plan of Treatment Health Maintenance Due Date Last Done Comments DTAP/TDAP/TD VACCINES (1 - Tdap) 09/04/1966 PNEUMOCOCCAL VACCINE 50+ YEARS (1 of 1 - PCV) 09/04/18 98 ZOSTER VACCINE (1 of 2) 09/04/1997 OSTEOPOROSIS SCREENING 09/04/2012 RSV VACCINE (60+ or ) (1 - 1-dose 75+ series) 09/04/2022 INFLUENZA VACCINE (#1) 2025 Insurance MEDICARE PART A AND B [facility] Care Teams Rubber Compounder Formulator Relationship Specialty Start Date End Date Brent Schafer MD [address] [place] [phone] PCP - General Family Practice 09/23/12
--- NOTE | 2025-01-27 07:54 | XR_ITS ---
WS: [id number] PORTABLE CHEST HISTORY: chest pain COMPARISON: 01/07/2024 Prior CABG. Lungs are clear and well expanded. No pleural effusion or pneumothorax. Cardiac size: Normal. Mediastinum/Aorta: Mild atherosclerosis aorta. Mild osteopenia. XR/XR chest 1V portable [id number] IMPRESSION: 1. No pneumonia. 2. Normal pulmonary vasculature. 3. Prior CABG.
--- NOTE | 2025-01-27 08:05 | ED_ITS ---
HPI - Chest Pain 2 General: Chief Complaint: ER Hold Stated Complaint: simona sob Time Seen by Provider: 01/27/25 07:50 History of Present Illness: 79-year-old female presents emergency ro om clear palpitations rapid heart rate some mild chest discomfort. She has a known history of coronary artery disease March of last year she was transferred from our facility to [place] for bypass. Immediately after she had a short episode of atrial fibrillation she was never started on any anticoagulants it resolved and had not recurred last few days she has had rapid heart rate and palpitations intermittently some associated exertional dyspnea. Associated symptoms: Deny abdominal pain, dyspnea or fever(s) Related Data Home Medications ?Medication ?Instructions ?Recorded ?Confirmed acetaminophen 500 mg capsule 500 mg PO Q6H PRN Pain (S johan 03/30/22 12/31/24 Score 1-3) knpewudqkls-ctt-wuqkzhxfc-hrb 1 tab PO DAILY 03/30/22 12/31/24 149-hyalur 500 mg-500 mg-66.7 mg tablet (Bccttqotlpc-Uzbandygmpr-BJO (with antiox)) lidocaine HCl 4 % topical cream 1 applic topical BID P RN Pain 03/30/22 12/31/24 (Aspercreme (lidocaine HCl)) meclizine 25 mg tablet (Dramamine 25 mg PO BID PRN Diz ziness Or 03/30/22 12/31/24 (meclizine)) Vertigo oxybutynin chloride 5 mg tablet 5 mg PO BID 03/30/22 0 12/31/24 pantoprazole 40 mg tablet,delayed 40 mg PO DAILY 03/3012/31/24 release phenylephrine HCl 10 mg tablet 10 mg PO Q6H PRN allerg ies 03/30/22 12/31/24 tramadol 50 mg tablet 50 mg PO DAILY 03/30/2203/19 loratadine 10 mg tablet 10 mg PO DAILY PRN allergies 03/28/24 12/31/24 evolocumab 140 mg/mL subcutaneous mg SUBCUT 08/15/24 0 12/31/24 syringe (Repatha Syringe) Previous Rx's ?Medication ?Instructions ?Recorded aspirin 81 mg tablet,delayed 81 mg PO DAILY #90 tabs 1 08/12/23 release (Adult Aspirin Regimen) clopidogrel 75 mg tablet 75 mg PO DAILY #90 tabs 05/25 02/15 metoprolol succinate 25 mg 25 mg PO DAILY #90 tabs tablet,extended release 24 hr teriparatide 20 mcg/dose (560 20 mcg (0.08 mL) SUBCUT DAILY 01/01/25 mcg/2.24 mL) subcutaneous pen #2.24 mL injector (Forteo) Allergies Allergy/AdvReac Type Severity Reaction Status Date / Time alendronate sodium (From Allergy Severe ALGY-Swell Verified 10/28/24 14:49 Fosamax) Lip/Tongue/Throat Anesthetics - Amide Type - Allergy Severe Unresponsiv Verified 10/28/24 14:49 Select A e denosumab (From Prolia) Allergy Severe ALGY-Difficulty Verified 10/28/24 14:49 Breathing topiramate (From Topamax) Allergy Severe Unresponsiv Verified 10/28/24 14:49 e atorvastatin (From Lipitor) Allergy Intermediate ADR-Cramping Verified 10/28/24 14:49 of the Muscles codeine Allergy Mild ADR-Dizzine Verified 10/28/24 14:49 ss dexlansoprazole (From Allergy Mild ADR-Diarrhe Verified 10/28/24 14:49 Dexilant) a pollen extracts Allergy Mild ADR-Headach Verified 10/28/24 14:49 e ranitidine Allergy Mild ADR-Gastrointestinal Verified 10/28/24 14:49 Upset Review of Systems 2 Const: Denies: fever(s) or chills Card: Denies: chest pain Resp: Denies: dyspnea GI: Denies: abdominal pain : Denies: dysuria, urinary frequency or urinary urgency Musc: Denies: neck pain or back pain Skin/Breast: Denies: rash PFSH ED 2 PFSH: Family History Father Skin cancer (melanoma) Social History Smoking and tobacco/nicotine status: unknown if used tobacco/nicotine Physical Exam 2 Const: GENERAL APPEARANCE: cooperative ORIENTATION/CONSCIOUSNESS: Yes awake, Yes oriented to person, Yes oriented to place and Yes oriented to time HENMT: COMMON NORMALS: normocephalic, atraumatic and hearing grossly normal bilaterally HEAD & SCALP: normocephalic and atraumatic Resp: COMMON NORMALS: normal respiratory effort, No retractions, No use of accessory muscles and clear to auscultation bilaterally AUSCULTATION: clear to auscultation bilaterally Cardio: COMMON NORMALS: No murmurs present (Cardio) RATE: tachycardic R HYTHM: abnormal rhythm irregularly irregular GI: COMMON NORMALS: Soft to palpation and No hepatosplenomegaly present A USCULTATION: Yes normoactive bowel sounds PALPATION: Yes Soft to palpation, No Tenderness to palpation present (GI), No Guarding due to palpation present (GI) and Yes No hepatosplenomegaly present Extremity: COMMON NORMALS: normal to inspection, capillary refill normal, no clubbing, cyanosis or edema, no calf tenderness and no pedal edema Neuro: SENSORIUM/ORIENTATION: Yes oriented to person, Yes oriented to place and Yes oriented to time Skin: COMMON NORMALS: no rashes or lesions noted GENERAL SKIN EXAM: no rashes or lesions noted Course 2 Vital Signs: Vital signs: Vital Signs Temperature 98.0 F 01/27/25 07:47 Pulse Rate 69 01/27/25 10:00 Respiratory Rate 16 01/27/25 10:00 Blood Pressure 85/55 01/27/25 10:00 Pulse Oximetry 95 01/27/25 09:15 Oxygen Delivery Me thod Room Air 01/27/25 10:16 MDM - Chest Pain Medical Decision Making Patient presents in A-fib with RVR which she is tolerating well her blood pressure is little bit on the low side but she is asymptomatic. We initially started Cardizem drip without bolus because of her low blood pressures she was given IV fluid boluses blood pressure improved Cardizem was stopped and given a 10 mg bolus and then restarted continue to titrate up but unable to treat for rate control changed her to amiodarone shortly after the bolus her heart rate converted to a normal sinus rhythm her amiodarone rate was changed from 1 to half. She states she feels much better repeat EKG shows sinus rhythm with a first-degree AV block. Patient will be admitted to [facility]SU for further evaluation and consideration of medications for rate control and anticoagulation as appropriate. Have discussed with hospitalist. Orders written. Medical Records I reviewed the patient's medical records. Lab Data I reviewed the patient's lab results. 01/27/25 08:20 01/27/25 08:20 Radiology Impressions Chest X-Ray 01/27/25 07:54 IMPRESSION: 1. No pneumonia. 2. Normal pulmonary vasculature. 3. Prior CABG. Laboratory Results WBC 9.71 10^3/uL (3.29-11.43) 01/27/25 08:20 RBC 4.26 10^6/uL (3.85-5.65) 01/27/25 08:20 Hgb 12.50 g/dL (11.27-16.99) 01/27/25 08:20 Hct 37.5 % (36-47) 01/27/25 08:20 MCV 88.0 fl (85-98) 01/27/25 08:20 MCH 29.3 pg (27-33) 01/27/25 08:20 MCHC 33.3 g/dL (30-55) 01/27/25 08:20 RDW 13.8 % (12.1-15.1) 01/27/25 08:20 Plt Count 307 10^3/cmm (157-399) 01/27/25 08:20 MPV 10.2 fL (7.4-10.4) 01/27/25 08:20 Neut % (Auto) 74.6 % 01/27/25 08:20 Lymph % (Auto) 15.8 % 01/27/25 08:20 Cabell % (Auto) 8.8 % 01/27/25 08:20 Eos % (Auto) 0.3 % 01/27/25 08:20 Baso % (Auto) 0.3 % 01/27/25 08:20 Neut # (Auto) 7.25 10^3/uL (1.8-7.7) 01/27/25 08:20 Lymph # (Auto) 1.5 10^3/uL (0.8-4.8) 01/27/25 08:20 [place]ell # (Auto) 0.9 10^3/uL (0.2-0.9) 01/27/25 08:20 Eos # (Auto) 0.0 10^3/uL (0.0-0.8) 01/27/25 08:20 Baso # (Auto) 0.0 10^3/uL (0.0-0.1) 01/27/25 08:20 Nucleated RBC % (auto) 0 % 01/27/25 08:20 Nucleated RBCs # 0.0 /100WBC 01/27/25 08:20 Sodium 134 mmol/L (136-145) L 01/27/25 08:20 Potassium 4.2 mmol/L (3.5-5.1) 01/27/25 08:20 Chloride 99 mmol/L (98-107) 01/27/25 08:20 Carbon Dioxide 20 mmol/L (22-29) L 01/27/25 08:20 Anion Gap 19.2 (5-19) H 01/27/25 08:20 BUN 9 mg/dL (8-23) 01/27/25 08:20 Creatinine 0.6 mg/dL (0.5-0.9) 01/27/25 08:20 GFR Calculation Not Reportable 01/27/25 08:20 Glucose 132 mg/dL (65-115) H 01/27/25 08:20 Calculated Osmolality 279 mOsm/kg (285-295) L 01/27/25 08:20 Calcium 9.3 mg/dL (8.5-10.5) 01/27/25 08:20 Total Bilirubin 1.2 mg/dL (0.15-1.2) 01/27/25 08:20 AST 30 U/L (0-32) 01/27/25 08:20 ALT 23 U/L (0-33) 01/27/25 08:20 Alkaline Phosphatase 123 U/L (35-105) H 01/27/25 08:20 Troponin T Baseline 12 ng/L (0-10) H 01/27/25 08:20 Total Protein 6.9 g/dL (6.6-8.7) 01/27/25 08:20 Albumin 4.1 g/dL (3.5-5.2) 01/27/25 08:20 Globulin 2.8 g/dL (1.3-4.6) 01/27/25 08:20 All radiology interpretation(s) finalized by discharge Discharge Plan Discharge Patient Disposition: Placed in Observation Admit Provider: Bijan Brown Clinical Impression: Atrial fibrillation with RVR, History of coronary artery disease Coding Level of Care Code ED Mimeographer for Nara Stack
[2025-01-27] MEDS: dilTIAZem 100 MG in sodium chloride 0.9% (add-van) 100 ML IV (08:19)
--- NOTE | 2025-01-27 08:21 | PC.NURSE ---
VERBAL ORDRERS FROM DR. HALLMAN TO HOLD 10MG DILTIAZEM DUE TO PT BLOOD PRESSURE OF 86/73.
[2025-01-27 08:41] LABS: Hematocrit 37.5 % (36-47); Hemoglobin 12.50 g/dL (11.27-16.99); Mean Corpuscular HGB Conc 33.3 g/dL (30-55); Mean Corpuscular Hemoglobin 29.3 pg (27-33); Mean Corpuscular Volume 88.0 fl (85-98); Nucleated Red Blood Cells % 0 %; Platelet Count 307 10^3/cmm (157-399); Red Blood Count 4.26 10^6/uL (3.85-5.65); White Blood Count 9.71 10^3/uL (3.29-11.43)
[2025-01-27 09:00] LABS: Alanine Aminotransferase 23 U/L (0-33); Albumin Level 4.1 g/dL (3.5-5.2); Alkaline Phosphatase 123 U/L (35-105); Anion Gap 19.2 (5-19); Aspartate Amino Transferase 30 U/L (0-32); Blood Urea Nitrogen 9 mg/dL (8-23); Calcium 9.3 mg/dL (8.5-10.5); Carbon Dioxide 20 mmol/L (22-29); Chloride 99 mmol/L (98-107); Creatinine Clr Calc Pharmacy 52.1700; Globulin 2.8 g/dL (1.3-4.6); Glucose 132 mg/dL (65-115); Osmolality Calculated 279 mOsm/kg (285-295); Potassium 4.2 mmol/L (3.5-5.1); Sodium 134 mmol/L (136-145); Total Protein 6.9 g/dL (6.6-8.7); Troponin(5th) Baseline 12 ng/L (0-10)
--- NOTE | 2025-01-27 09:42 | ECG_ITS ---
[facility] Test Date: 2025-01-27 Pat Name: Giuliana Jones Department: Room: EDIP Gender: Female [employer] Glazer: : 1945 Requested By: Uday Villavicencio Order Number: [id number] Jemma MD: Fenry Gomez M.D. Measurements Intervals [place] Rate: 122 P: 0 MA: 0 QRS: 56 QRSD: 82 T: 67 QT: 310 QTc: 443 Interpretive Statements ATRIAL FLUTTER/TACHYCARDIA WITH RAPID VENTRICULAR RESPONSE MODERATE ST DEPRESSION [0.05+ mV ST DEPRESSION] Compared to ECG 01/27/2025 07:49:11 ST (T wave) deviation now present T-wave abnormality no longer present Possible ischemia no longer present Electronically Signed On 01-28-2025 09:26:09 CDT by Ferny Gomez M.D. [id number]
[2025-01-27] MEDS: amiodarone 150 MG/100 ML PREMIX 400 MG IV (10:09)
[2025-01-27 11:02] LABS: Troponin 5 2HR 11.32 ng/L (0-10)
[2025-01-27 11:04] LABS: Troponin 5 2HR Delta -0.68 ABS# (0-10)
--- NOTE | 2025-01-27 12:40 | PC.NURSE ---
DR HALLMAN NOTIFIED OF PT BLOOD PRESSURE TRENDS. NO NEW ORDERS AT THIS TIME.
--- NOTE | 2025-01-27 13:54 | ECG_ITS ---
[facility] Test Date: 2025-01-27 Pat Name: Giuliana Jones Department: Room: EDIP Gender: Female [employer] Developer: : 1945 Requested By: Uday Villavicencio Order Number: [id number] Jemma MD: Ferny Gomez M.D. Measurements Intervals [place] Rate: 67 P: 44 GA: 236 QRS: 40 QRSD: 77 T: 44 QT: 385 QTc: 409 Interpretive Statements SINUS RHYTHM WITH FIRST DEGREE AV BLOCK MODERATE ST DEPRESSION [0.05+ mV ST DEPRESSION] Compared to ECG 01/27/2025 09:42:48 First degree AV block now present Atrial flutter no longer present ST (T wave) deviation still present Electronically Signed On 01-28-2025 09:25:43 CDT by Ferny Gomez M.D. [email or web address] [id number]
--- NOTE | 2025-01-27 14:19 | PM.HP ---
Providers/Chief Complaint Admitting Physician: Bijan Brown Primary Care Provider: Rodrigo Grossman MD Chief Complaint: cp, sob History of Present Illness Giuliana Jones is a 79 year old woman with a history of skin cancer and coronary artery disease status post triple coronary artery bypass graft (CABG) on 04/04 of last year who presented to the emergency department (ED) with a sensation of palpitations, tachycardia into the 140s, and mild chest discomfort. In the ED she was found to be in atrial fibrillation with rapid ventricular response (RVR). Initial rate control with a diltiazem (Cardizem) drip was abandoned when systolic blood pressure fell to 85/55 mmHg; she was switched to an amiodarone drip and subsequently converted to normal sinus rhythm with first-degree atrioventricular (AV) block. She reports feeling ?100 % better? since conversion. She recalls a brief postoperative episode of atrial fibrillation following her CABG, for which she completed a six-month course of amiodarone that was later discontinued. Home medications include aspirin, Plavix (clopidogrel), metoprolol 25 mg once daily, and Repatha. She is not on a direct oral anticoagulant. She experiences occasional symptomatic low blood glucose when meals are delayed and avoids high-carbohydrate foods to prevent episodes. No diabetes history. She notes heat intolerance since her surgery, describing shortness of breath and leg weakness in temperatures ?95 ?F and therefore schedules outdoor activity in cooler parts of the day. Review of systems otherwise negative for fever, chills, respiratory or gastrointestinal symptoms, bleeding, or edema. She denies leg swelling today but endorses intermittent right-sided swelling during sciatica flares. Advanced directives are on file; she desires full resuscitative efforts if prognosis is reasonable. Review of Systems Const: Denies: fever(s), chills, body aches or malaise ENMT: Denies: throat pain Card: Reports: palpitations and irregular heart rhythm; Denies: chest pain (minor discomfort), edema, pre-syncope or dyspnea on exertion Resp: Denies: dyspnea, productive cough, change in phlegm color or hemoptysis GI: Denies: abdominal pain, nausea, vomiting, diarrhea, constipation, hematochezia or melena : Denies: flank pain, urinary frequency or hematuria Musc: Denies: back pain, joint swelling or joint redness Skin/Breast: Denies: rash or new lesions Neuro: Denies: headache(s) or confusion Medications/Allergies Home Medications ?Medication ?Instructions ?Recorded ?Confirmed ?Last Taken ?Type lidocaine HCl 4 % topical cream 1 applic topical BID PRN Pain 03/30/22 01/27/25 03/30/24 History (Aspercreme (lidocaine HCl)) meclizine 25 mg tablet (Dramamine 25 mg PO BID PRN Dizziness Or 03/30/22 01/27/25 Unknown History (meclizine)) Vertigo pantoprazole 40 mg tablet,delayed 40 mg PO DAILY 03/30/22 01/27/25 01/27/25 History release tramadol 50 mg tablet 50 mg PO BEDTIME 03/30/22 01/27/25 01/26/25 History loratadine 10 mg tablet 10 mg PO DAILY PRN allergies 03/28/24 01/27/25 03/30/24 History aspirin 81 mg tablet,delayed 81 mg PO DAILY #90 tabs 06/11/24 01/27/25 01/26/25 Rx release (Adult Aspirin Regimen) clopidogrel 75 mg tablet 75 mg PO DAILY #90 tabs 06/11/24 01/27/25 01/26/25 Rx metoprolol succinate 25 mg 25 mg PO DAILY #90 tabs 06/11/24 01/27/25 01/27/25 Rx tablet,extended release 24 hr evolocumab 140 mg/mL subcutaneous 140 mg SUBCUT Q14D 08/15/24 01/27/25 01/19/25 History syringe (Repatha Syringe) teriparatide 20 mcg/dose (560 20 mcg (0.08 mL) SUBCUT DAILY 01/01/25 01/27/25 Unknown Rx mcg/2.24 mL) subcutaneous pen #2.24 mL injector (Forteo) Allergies Allergy/AdvReac Type Severity Reaction Status Date / Time alendronate sodium (From Allergy Severe ALGY-Swell Verified 10/28/24 14:49 Fosamax) Lip/Tongue/Throat Anesthetics - Amide Type - Allergy Severe Unresponsiv Verified 10/28/24 14:49 Select A e denosumab (From Prolia) Allergy Severe ALGY-Difficulty Verified 10/28/24 14:49 Breathing topiramate (From Topamax) Allergy Severe Unresponsiv Verified 10/28/24 14:49 e atorvastatin (From Lipitor) Allergy Intermediate ADR-Cramping Verified 10/28/24 14:49 of the Muscles codeine Allergy Mild ADR-Dizzine Verified 10/28/24 14:49 ss dexlansoprazole (From Allergy Mild ADR-Diarrhe Verified 10/28/24 14:49 Dexilant) a pollen extracts Allergy Mild ADR-Headach Verified 10/28/24 14:49 e ranitidine Allergy Mild ADR-Gastrointestinal Verified 10/28/24 14:49 Upset PFSH Acute PFSH: Medical History Coronary artery disease Surgical History S/P CABG x 3 Dr Peres 04/04/24 Family History Father Skin cancer (melanoma) Social History Smoking and tobacco/nicotine status: unknown if used tobacco/nicotine Vitals/I&O/Wt Last Vital Signs Temp 98.0 F 01/27/25 07:47 Pulse 65 01/27/25 13:45 Resp 18 01/27/25 13:30 BP 124/51 01/27/25 13:45 Pulse Ox 97 01/27/25 13:45 O2 Del Method Room Air 01/27/25 10:16 01/26/25 01/27/25 01/27/25 22:59 06:59 14:59 Intake Total 955.823 / 955.823 Balance 955.823 / 955.823 Weight last 48 hrs Weight 61.689 kg Physical Exam Narrative: Accompanied by female visitor. Const: COMMON NORMALS: patient oriented x3 and alert GENERAL APPEARANCE: cooperative ORIENTATION/CONSCIOUSNESS: Yes awake HENMT: COMMON NORMALS: oropharynx normal Neck/C-Spine: COMMON NORMALS: no JVD Resp: COMMON NORMALS: normal respiratory effort and clear to auscultation bilaterally AUSCULTATION: clear to auscultation bilaterally Cardio: COMMON NORMALS: no JVD, regular rhythm, S1 normal heart sound present, S2 normal heart sound present and No murmurs present (Cardio) RHYTHM: regular rhythm HEART SOUNDS: S1 normal heart sound present and S2 normal heart sound present GI: COMMON NORMALS: Normal to inspection, nondistended, normoactive bowel sounds present, Soft to palpation and non-tender PALPATION: Yes Soft to palpation Extremity: COMMON NORMALS: no joint enlargement and no pedal edema Neuro: COMMON NORMALS: patient oriented x3 and moves all extremities SENSORIUM/ORIENTATION: Yes alert Skin: COMMON NORMALS: no rashes or lesions noted GENERAL SKIN EXAM: no rashes or lesions noted Data 01/27/25 08:20 01/27/25 08:20 A&P Assessment and plan 1. Atrial fibrillation with RVR: Atrial fibrillation with rapid ventricular response : Converted to sinus rhythm with first-degree AV block after amiodarone drip; hypotensive on diltiazem; decision to resume metoprolol and complete 24-hour amiodarone infusion before switching to oral formulation. Stroke prevention discussed; current dual antiplatelet therapy (aspirin + Plavix) provides suboptimal protection; plan to add anticoagulation and likely discontinue aspirin to reduce triple-therapy bleeding risk. Reviewed vitals, CBC, CMP, troponin, chest x-ray, EKG, ED provider note, discussed with ED provider. - Complete current 24-hour amiodarone drip, then transition to oral amiodarone tomorrow morning. Reassess liver parameters with risk of liver injury with history of hepatitis C. - Resume home metoprolol 25 mg and increase by 12.5 mg tonight (total 37.5 mg) if blood pressure tolerates - Start Eliquis (apixaban) while continuing Plavix and discontinuing aspirin (because triple therapy increases bleeding risk) - Order transthoracic echocardiogram to reassess ventricular function and valves - Check TSH, check magnesium - Continuous telemetry overnight; discharge considered if rhythm and hemodynamics stable after oral amiodarone initiation - Follow-up with Dr. Novoa after discharge to reassess need for ongoing amiodarone. Discussed consideration of discontinue amiodarone currently now and continue optimize metoprolol, but she does elect to temporarily treat with amiodarone and follow-up with cardiology in office to revisit reassess and come off amiodarone at that point. 2. S/P CABG x 3: In March. On aspirin and Plavix. On 25 mg metoprolol and Repatha. Plan: History of hepatitis C : Remote transfusion-acquired infection 40 years ago; patient reports subsequent evaluation showing clearance. 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 Discussed risks. Discussed consideration of discontinue amiodarone currently now and continue optimize metoprolol, but she does elect to temporarily treat with amiodarone and follow-up with cardiology in office to revisit reassess and come off amiodarone at that point. - Monitor liver function tests while on amiodarone because of hepatotoxic risk - He reports prior hepatitis C clearance confirmed by her primary provider Reactive hypoglycemia : Occasional low glucose when meals are missed; symptoms include headache, dizziness; finger-stick today 89 mg/dL. Resumed consistent carbohydrate diet which she maintains at home with vegetarian diet. - Provide consistent-carbohydrate meals during hospitalization - Check capillary blood glucose if symptomatic - Patient to notify staff promptly with symptoms of hypoglycemia - Dietary counseling to continue regular protein-rich meals after discharge Heat intolerance : Experiences dyspnea and leg weakness in ambient temperatures >95 ?F since surgery; adapts by scheduling activity during cooler periods. - Advise continued avoidance of high-heat exposure and prompt cooling measures if overheated Follow-up : Hospital course and outpatient coordination. - Overnight inpatient observation with planned transition to oral amiodarone and rhythm monitoring - Discharge home if stable after oral conversion and ambulating well - Keep existing cardiology appointment next with Dr. Novoa for medication review and rhythm assessment PDMP PDMP Reviewed: Not Reviewed Attestations Medical Necessity Statement*: Place in observation for additional optimization of control of A-fib with RVR with history of CAD. and High MDM includes amount and/or complexity of data reviewed/ordered [ previous or external records, resulted lab(s)/test(s), ordered lab(s)/test(s) and other healthcare professional discussion] and described risk of complication, morbidity or mortality of management as documented Diagnoses Atrial fibrillation with RVR I48.91 S/P CABG x 3 Z95.1
--- NOTE | 2025-01-27 15:05 | PC.NURSE ---
Patient transferred from ED to CSU at 1505.
--- NOTE | 2025-01-27 16:07 | PC.NURSE ---
Provider ordered carb consistent diet.
[2025-01-27 16:47] LABS: Troponin 5 6HR 8.67 ng/L (0-10); Troponin 5 6HR Delta -3.33 ng/L (0-12)
--- NOTE | 2025-01-27 17:13 | USCV_ITS ---
Giuliana Jones Age: 79 Gender: F : 1945 Exam Date: 01/27/2025 18:37 Ordering Phys: Bijan Brown MD Technologist: ANTELMO [place]am [place] [facility] [place] [facility] [place] Indication: Afib with RVR, history CAD s/p CABG 04/04/2024 BP: 150 / 75 HR: 65 Rhythm: Sinus Technical Quality: Adequate MEASUREMENTS (Male / Female) Normal Values 2D ECHO LV Diastolic Diameter PLAX 3.7 cm 4.2 - 5.9 / 3.9 - 5.3 cm IVS Diastolic Thickness 1.3 cm 0.6 - 1.0 / 0.6 - 0.9 cm IVS Systolic Thickness 1.8 cm LVPW Diastolic Thickness 1.3 cm 0.6 - 1.0 / 0.6 - 0.9 cm LVPW Systolic Thickness 1.2 cm LVOT Diameter 1.8 cm LV Ejection Fraction 2D Teich 70.3 % LV Ejection Fraction MOD 4C 57.7 % LV Ejection Fraction MOD 2C 49.5 % LV Ejection Fraction 2C AL 50.1 % LA Diameter 3.9 cm LA Sys Volume AL 67.2 cm cubed LA Sys Volume Index AL 40.4 cm cubed/m squared Aorta at Sinotubular Diameter 2.9 cm IVC Diameter 1.7 cm M-MODE LA Ao Ratio MM 1.4 AV Cusp Separation MM 1.9 cm DOPPLER AV Peak Velocity 140.0 cm/s LVOT Peak Velocity 106.0 cm/s AV Area Cont Eq vti 2.2 cm squared AV Area Cont Eq pk 2.0 cm squared MV Peak Velocity 102.0 cm/s MV Area PHT 3.8 cm squared Mitral E to A Ratio 1.8 TV Peak Velocity 226.3 cm/s TR Peak Velocity 252.0 cm/s TR Peak Gradient 25.4 mmHg TV Peak E Velocity 37.0 cm/s PV Peak Velocity 95.0 cm/s FINDINGS Left Ventricle Normal LV size with normal ejection fraction of 58%. Mild concentric left ventricular hypertrophy. No gross wall motion abnormalities noted.Grade III/IV diastolic dysfunction (restrictive filling pattern), severely elevated filling pressures. Right Ventricle The right ventricle is normal in size and function. Right Atrium Mildly increased right atrial size. Left Atrium Moderate to severely dilated left atrium Mitral Valve Moderate mitral valve regurgitation. Aortic Valve No gross abnormalities noted Tricuspid Valve Qtvn-lv-miorivmq tricuspid valve regurgitation. Pulmonic Valve Mild pulmonary valve regurgitation. Pericardium No pericardial effusion. Aorta Normal ascending aorta dimension. IVC Normal inferior vena cava. CONCLUSIONS Normal LV size with normal ejection fraction of 58%. Mild concentric left ventricular hypertrophy. No gross wall motion abnormalities noted.Grade III/IV diastolic dysfunction (restrictive filling pattern), severely elevated filling pressures. Moderate to severely dilated left atrium. Mildly increased right atrial size. Moderate mitral valve regurgitation. Htbk-xp-ykhyfvfx tricuspid valve regurgitation. Estimated pulmonary artery peak systolic pressure 28 mmHg Mild pulmonary valve regurgitation. There is no pericardial effusion. There are no intracardiac masses. Compared to the study from 03/31/2024, there is biatrial enlargement, worsening of the mitral and tricuspid regurgitation and development of LV diastolic dysfunction Dr Ferny Gomez MD [facility] (Electronically Signed) Final Date: 27 January 2025 22:49 S
[2025-01-27 21:12] LABS: Magnesium 2.2 mg/dL (1.7-2.3); Thyroid Stimulating Hormone 0.63 uIU/mL (0.27-4.20)
[2025-01-28] VITALS: BP 120/59; PULSE 65; RESP 15; TEMP 36.8; O2SAT 94
[2025-01-28 04:00] VITALS: BP 117/63; PULSE 65; RESP 18; TEMP 36.5; O2SAT 96
[2025-01-28 04:15] LABS: Hematocrit 31.5 % (36-47); Hemoglobin 10.30 g/dL (11.27-16.99); Mean Corpuscular HGB Conc 32.7 g/dL (30-55); Mean Corpuscular Hemoglobin 29.5 pg (27-33); Mean Corpuscular Volume 90.3 fl (85-98); Nucleated Red Blood Cells % 0 %; Platelet Count 258 10^3/cmm (157-399); Red Blood Count 3.49 10^6/uL (3.85-5.65); White Blood Count 5.21 10^3/uL (3.29-11.43)
[2025-01-28 04:47] LABS: Alanine Aminotransferase 18 U/L (0-33); Albumin Level 3.3 g/dL (3.5-5.2); Alkaline Phosphatase 98 U/L (35-105); Anion Gap 12.7 (5-19); Aspartate Amino Transferase 23 U/L (0-32); Blood Urea Nitrogen 7 mg/dL (8-23); Calcium 8.7 mg/dL (8.5-10.5); Carbon Dioxide 20 mmol/L (22-29); Chloride 108 mmol/L (98-107); Creatinine Clr Calc Pharmacy 52.1700; Globulin 2.7 g/dL (1.3-4.6); Glucose 99 mg/dL (65-115); Osmolality Calculated 282 mOsm/kg (285-295); Potassium 3.7 mmol/L (3.5-5.1); Sodium 137 mmol/L (136-145); Total Protein 6.0 g/dL (6.6-8.7)
[2025-01-28 07:27] VITALS: BP 131/69; PULSE 62; RESP 20; TEMP 36.5; O2SAT 96
--- NOTE | 2025-01-28 07:28 | PC.NURSE ---
0037- Clarified with Dr. Barreto regarding patient necessity for fluids. Received orders to stop IVF.
[2025-01-28] MEDS: metoprolol succinate ER (24 HR) 25 mg Tablet PO (08:58)
--- OUTSIDE RECORDS SUMMARY | 2025-01-28 09:00 | XMS_ITS | Clinical Summary ---
Author Organization [facility] Address 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 Care Teams Manager Hair Relationship Specialty Start Date End Date Brent Schafer MD [address] [place] [id number] PCP - General Family Practice 09/23/12
--- OUTSIDE RECORDS SUMMARY | 2025-01-28 09:00 | XMS_ITS | Clinical Summary ---
Author Organization [facility] 

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
[2025-01-28 11:25] VITALS: BP 129/67; PULSE 71; RESP 22; TEMP 36.7; O2SAT 93
--- NOTE | 2025-01-28 12:13 | P.DS_ITS ---
Discharge Providers Date of Admission: 01/27/25 08:29 Date of Discharge: January 28, 2025 Attending Provider at Admission: Bijan Brown Attending Provider at Discharge: Bijan Brown Primary Care Provider: Rodrigo Grossman MD Diagnoses at Discharge Discharge Diagnosis 1. Atrial fibrillation with RVR: 2. S/P CABG x 3: Reason for Visit Reason for Visit: cp, sob Brief History: Giuliana Jones is a 79 year old woman with a history of skin cancer and coronary artery disease status post triple coronary artery bypass graft (CABG) on 04/04 of last year who presented to the emergency department (ED) with a sensation of palpitations, tachycardia into the 140s, and mild chest discomfort. In the ED feliz simms was found to be in atrial fibrillation with rapid ventricular response (RVR). Initial rate control with a diltiazem (Cardizem) drip was abandoned when systolic blood pressure fell to 85/55 mmHg; she was switched to an amiodarone drip and subsequently converted to normal sinus rhythm with first-degree atrioventricular (AV) block. She reports feeling ?100 % better? since conversion. She recalls a brief postoperative episode of atrial fibrillation following her CABG, for which she completed a six-month course of amiodarone that was later discontinued. Home medications include aspirin, Plavix (clopidogrel), metoprolol 25 mg once daily, and Repatha. She is not on a direct oral anticoagulant. She experiences occasional symptomatic low blood glucose when meals are delayed and avoids high-carbohydrate foods to prevent episodes. No diabetes history. She notes heat intolerance since her surgery, describing shortness of breath and leg weakness in temperatures ?95 ?F and therefore schedules outdoor activity in cooler parts of the day. Review of systems otherwise negative for fever, chills, respiratory or gastrointestinal symptoms, bleeding, or edema. She denies leg swelling today but endorses intermittent right-sided swelling during sciatica flares. Advanced directives are on file; she desires full resuscitative efforts if prognosis is reasonable. Hospital Course Hospital Course Her heart rhythm converted from A-fib with RVR to normal sinus rhythm. Her usual metoprolol was resumed. She was maintained on amiodarone drip. Per discussion with her consideration was given to discontinuation of amiodarone and optimization of control with further adjustment of metoprolol dosing possibly increase up to 37.5 mg for gradual escalation of therapy unless risk of hypotension and follow-up with cardiology. However, since she had responded to amiodarone and with prior challenges with hypotension with attempted management on presentation she preferred to continue with amiodarone and transition to oral amiodarone at this time even with known risk to her liver given prior history of hepatitis C and other potential amiodarone associated risks. She would prefer to continue amiodarone temporarily at this time and follow-up with her scratcher tender Dr. Limon and discuss and plan discontinuation on follow-up visit in the office. Completed amiodarone infusion switched over to oral amiodarone. On discussion of risk of stroke would benefit from anticoagulation. She had bypass surgery back in March. Per discussion with Dr. Novoa with risk of bleeding with triple therapy anticoagulation initiated alongside Plavix with discontinuation of aspirin at this time. Initially started on Lovenox. Disc ussed with her decreasing hemoglobin on repeat blood counts today down to 10.3 from 12.5 yesterday. She did not note any obvious bleeding or change in symptoms denies any hematochezia melena hematuria or blood and other obvious sources. Blood counts were rechecked later this afternoon and noted with improvement, with anemia possibly related to hemodilution after IV hydration on presentation. She otherwise has been feeling well and has been able to ambulate without any issues or return of A-fib with RVR. She is asked to follow-up for reassessment with primary provider and cardiology. Echocardiogram obtained during hospitalization revealed normal ejection fraction with mild concentric LVH grade 3 diastolic dysfunction. Moderate to severely dilated left atrium. Moderate MVR. Mild to moderate TVR. Estimated pulm artery peak systolic pressure 28 mmHg. Mild PVR. Noted worsening mitral and tricuspid regurg compared to prior. Please follow-up organ system may be affected by amiodarone, follow-up liver parameters especially given history of hepatitis C in the past. She recalls stating that she had cleared hepatitis, please confirm. Physical Exam Const: COMMON NORMALS: patient oriented x3 and alert GENERAL APPEARANCE: cooperative ORIENTATION/CONSCIOUSNESS: Yes awake HENMT: COMMON NORMALS: oropharynx normal Neck/C-Spine: COMMON NORMALS: no JVD Resp: COMMON NORMALS: normal respiratory effort and clear to auscultation bilaterally AUSCULTATION: clear to auscultation bilaterally Cardio: COMMON NORMALS: no JVD, regular rhythm, S1 normal heart sound present, S2 normal heart sound present and No murmurs present (Cardio) RHYTHM: regular rhythm HEART SOUNDS: S1 normal heart sound present and S2 normal heart sound present GI: COMMON NORMALS: Normal to inspection, nondistended, normoactive bowel sounds present, Soft to palpation and non-tender PALPATION: Yes Soft to palpation Extremity: COMMON NORMALS: no joint enlargement and no pedal edema Neuro: COMMON NORMALS: patient oriented x3 and moves all extremities SENSORIUM/ORIENTATION: Yes alert Skin: COMMON NORMALS: no rashes or lesions noted GENERAL SKIN EXAM: no rashes or lesions noted Discharge Data Studies Completed and Pending Completed Studies During Hospitalization Category Date Time Status XR chest 1V portable [id number] Stat Exams 01/27/25 07:54 Completed CV. echo complete* [id number] Routine Ultrasound 01/27/25 17:13 Completed Pending at discharge Category Date Time Status Complete Blood Count w/Auto AM LABS Lab 01/29/25 04:00 Ordered Complete Blood Count w/Auto AM LABS Lab 01/30/25 04:00 Ordered Comprehensive Metabolic Panel AM LABS Lab 01/29/25 04:00 Ordered Comprehensive Metabolic Panel AM LABS Lab 01/30/25 04:00 Ordered Hemoglobin Routine Lab 01/28/25 13:00 Ordered Radiology Impressions Chest X-Ray 01/27/25 07:54 IMPRESSION: 1. No pneumonia. 2. Normal pulmonary vasculature. 3. Prior CABG. Laboratory Results WBC 5.21 10^3/uL (3.29-11.43) 01/28/25 03:43 RBC 3.49 10^6/uL (3.85-5.65) L 01/28/25 03:43 Hgb 10.30 g/dL (11.27-16.99) L 01/28/25 03:43 Hct 31.5 % (36-47) L 01/28/25 03:43 MCV 90.3 fl (85-98) 01/28/25 03:43 MCH 29.5 pg (27-33) 01/28/25 03:43 MCHC 32.7 g/dL (30-55) 01/28/25 03:43 RDW 14.1 % (12.1-15.1) 01/28/25 03:43 Plt Count 258 10^3/cmm (157-399) 01/28/25 03:43 MPV 10.2 fL (7.4-10.4) 01/28/25 03:43 Neut % (Auto) 54.3 % 01/28/25 03:43 Lymph % (Auto) 28.8 % 01/28/25 03:43 Sanders % (Auto) 14.6 % 01/28/25 03:43 Eos % (Auto) 1.5 % 01/28/25 03:43 Baso % (Auto) 0.6 % 01/28/25 03:43 Neut # (Auto) 2.83 10^3/uL (1.8-7.7) 01/28/25 03:43 Lymph # (Auto) 1.5 10^3/uL (0.8-4.8) 01/28/25 03:43 Sanders # (Auto) 0.8 10^3/uL (0.2-0.9) 01/28/25 03:43 Eos # (Auto) 0.1 10^3/uL (0.0-0.8) 01/28/25 03:43 Baso # (Auto) 0.0 10^3/uL (0.0-0.1) 01/28/25 03:43 Nucleated RBC % (auto) 0 % 01/28/25 03:43 Nucleated RBCs # 0.0 /100WBC 01/28/25 03:43 Sodium 137 mmol/L (136-145) 01/28/25 03:43 Potassium 3.7 mmol/L (3.5-5.1) 01/28/25 03:43 Chloride 108 mmol/L (98-107) H 01/28/25 03:43 Carbon Dioxide 20 mmol/L (22-29) L 01/28/25 03:43 Anion Gap 12.7 (5-19) 01/28/25 03:43 BUN 7 mg/dL (8-23) L 01/28/25 03:43 Creatinine 0.4 mg/dL (0.5-0.9) L 01/28/25 03:43 GFR Calculation Not Reportable 01/28/25 03:43 Glucose 99 mg/dL (65-115) 01/28/25 03:43 POC Glucose 89 mg/dL (70-110) 01/27/25 15:19 Calculated Osmolality 282 mOsm/kg (285-295) L 01/28/25 03:43 Calcium 8.7 mg/dL (8.5-10.5) 01/28/25 03:43 Magnesium 2.2 mg/dL (1.7-2.3) 01/27/25 10:30 Total Bilirubin 0.6 mg/dL (0.15-1.2) 01/28/25 03:43 AST 23 U/L (0-32) 01/28/25 03:43 ALT 18 U/L (0-33) 01/28/25 03:43 Alkaline Phosphatase 98 U/L (35-105) 01/28/25 03:43 Troponin T Baseline 12 ng/L (0-10) H 01/27/25 08:20 Troponin T 120 Minute 11.32 ng/L (0-10) H 01/27/25 10:30 Delta Troponin T -0.68 ABS# (0-10) L 01/27/25 10:30 Troponin T Hi Sens 6Hr 8.67 ng/L (0-10) 01/27/25 16:15 Troponin T Hi Sens 6Hr Delta -3.33 ng/L (0-12) L 01/27/25 16:15 Total Protein 6.0 g/dL (6.6-8.7) L 01/28/25 03:43 Albumin 3.3 g/dL (3.5-5.2) L 01/28/25 03:43 Globulin 2.7 g/dL (1.3-4.6) 01/28/25 03:43 TSH 0.63 uIU/mL (0.27-4.20) 01/27/25 10:30 Vitals Last Vital Signs Temp 98.0 F 01/28/25 11:25 Pulse 71 01/28/25 11:25 Resp 22 H 01/28/25 11:25 BP 129/67 01/28/25 11:25 Pulse Ox 93 01/28/25 11:25 O2 Del Method Room Air 01/28/25 11:25 Discharge Plan Discharge Patient Disposition: Home Condition: Stable Prescriptions: New amiodarone [Pacerone] 200 mg Tablet 200 mg PO BID Qty: 60 0RF Rx Instructions: Take 200mg BID for 7 days then decrease to 100mg BID Eliquis 5 mg tablet 5 mg PO BID Qty: 180 0RF Continued tramadol 50 mg tablet 50 mg PO BEDTIME meclizine [Dramamine (meclizine)] 25 mg tablet 25 mg PO BID PRN (Reason: Dizziness Or Vertigo) lidocaine HCl [Aspercreme (lidocaine HCl)] 4 % cream 1 applic topical BID PRN (Reason: Pain) pantoprazole 40 mg tablet,delayed release (DR/EC) 40 mg PO DAILY Repatha Syringe 140 mg/mL syringe 140 mg SUBCUT Q14D teriparatide [Forteo] 20 mcg/dose (560mcg/2.24mL) pen injector 20 mcg SUBCUT DAILY Qty: 2.24 1RF metoprolol succinate 25 mg tablet extended release 24 hr 25 mg PO DAILY Qty: 90 3RF clopidogrel 75 mg tablet 75 mg PO DAILY Qty: 90 3RF loratadine 10 mg Tablet 10 mg PO DAILY PRN (Reason: allergies) Discontinued aspirin [Adult Aspirin Regimen] 81 mg tablet,delayed release (DR/EC) 81 mg PO DAILY Qty: 90 3RF Discharge Order = DC NOW: Discharge Order (Routine); Ordered 01/28/25 Ordered By: Bijan Brown Referrals: Domo Novoa M.D [Physician, Cardiology] - 02/17/25 8:30 am Referral Note: This appointment is scheduled with Rodrigo Aiken NP, MD [Primary Care Provider, [facility]] - 02/04/25 11:45 am Discharge Diet: Cardiac Patient Instructions: Amiodarone (By mouth) (Cordarone, Pacerone), Apixaban (By mouth), Coronary Artery Disease (DC), A-fib (Atrial Fibrillation) (DC), Chest Pain Stoplight, Opioid Safety, Patient Portal & Nacho Instructions Activity Restrictions/Additional Instructions: Follow-up with your primary doctor for reassessment of atrial fibrillation. Continue metoprolol. You are started on amiodarone, take amiodarone 200 mg twice daily for 7 days then switch to 100 mg twice daily. As discussed while on amiodarone have your primary doctor follow-up regarding risks associated with amiodarone including checking for any injury to the liver eyes thyroid and lungs. As discussed follow-up with cardiology for reassessment and Hydrance on discontinuation of amiodarone and continued management of atrial fibrillation after difficulty encountered with low blood pressure when trying to manage fast heart rates on presentation. Follow-up with your primary doctor for reassessment of noted anemia with hemoglobin decreased down to 10.3 have your primary doctor perform additional workup with regards to anemia. As discussed with blood thinner medication monitor for any bleeding, avoid injury, seek medical attention in case of any noted gastrointestinal urinary or other bleeding. As discussed maintain caution with tramadol which may increase risk of bleeding. Discussed with your primary doctor consideration of change to a different opioid. Use Tylenol as needed. Avoid NSAIDs if possible. Seek medical attention in case of any worsening or new concerning symptoms. Follow-up with your primary doctor to confirm that you are assessed to rule out chronic hepatitis C infection. Discharge Attestations Time Spent in Discharge Care*: greater than 30 min Quality Metrics Clinical Quality Measures [ No reported AMI, CVA or VTE this stay] Coding Level of Care Code 71929 Total time (in minutes) for Discharge: 45 Diagnoses Atrial fibrillation with RVR I48.91 S/P CABG x 3 Z95.1
[2025-01-28 13:08] LABS: Hemoglobin 12.10 g/dL (11.27-16.99)
[2025-01-28 14:06] VITALS: BP 129/67; PULSE 71; RESP 20; O2SAT 93
--- NOTE | 2025-01-28 14:08 | PC.NURSE ---
Patient discharged to home. Instruction provided regarding follow up needs and new medications with changes. Patient verbalized complete understanding. New Rx transmitted to [facility] as per patient request. Discussed importance of Eliquis due to high risk for stroke associated with Afib. Patient verbalized understanding. Patient taken by wheelchair to private vehicle. Daughter to provided transportation.
== END 2025-01-28 14:12 | disposition home or self-care (01) ==
LOC: ER 08:43 → ER IP 09:14 → CSU 14:31 → ER IP 01-28 08:56
PROVIDERS: Admitting Provider Internal Medicine; Emergency Provider Family Medicine; PCP Family Medicine; Visit Provider Internal Medicine
DX: I48.91 Unspecified atrial fibrillation (principal); Z95.1 Presence of aortocoronary bypass graft; K21.9 Gastro-esophageal reflux disease without esophagitis; Z85.828 Personal history of other malignant neoplasm of skin; R00.0 Tachycardia, unspecified; Z79.82 Long term (current) use of aspirin; I25.10 Atherosclerotic heart disease of native coronary artery without angina pectoris
CPT/HCPCS: 36415; 36416; 71045; 80053; 82962; 83735; 84443; 84484; 85018; 85025; 93005; 93306; 96365; 96366; 96372; 99285; A4222; G0378; J0283; J1650; J3490; J7030; J7040; J9999

== ENCOUNTER → 2025-01-29 11:28 | Outpatient (BNVA) | payer MEDICARE, SELFPAY | PROVIDERS: Family Provider Thoracic Surgery (Cardiothoracic Vascular Surgery); PCP Family Medicine; Visit Provider Nurse Practitioner Family | DX: L60.8 Other nail disorders (principal); L57.8 Other skin changes due to chronic exposure to nonionizing radiation; D22.39 Melanocytic nevi of other parts of face; Z08 Encounter for follow-up examination after completed treatment for malignant neoplasm; Z86.006 Personal history of melanoma in-situ; L57.0 Actinic keratosis | CPT/HCPCS: 17000; 99213 ==

== ENCOUNTER → 2025-02-05 12:28 | Outpatient (BNVA) | payer MEDICARE, SELFPAY | PROVIDERS: Family Provider Thoracic Surgery (Cardiothoracic Vascular Surgery); PCP Family Medicine; Visit Provider Internal Medicine | DX: I48.91 Unspecified atrial fibrillation (principal); Z79.01 Long term (current) use of anticoagulants | CPT/HCPCS: 99214 ==

== ENCOUNTER → 2025-04-07 14:31 | Outpatient (BNVA) | payer MEDICARE, SELFPAY | PROVIDERS: Family Provider Thoracic Surgery (Cardiothoracic Vascular Surgery); PCP Family Medicine; Visit Provider Internal Medicine | DX: E11.9 Type 2 diabetes mellitus without complications (principal) | CPT/HCPCS: 36415; 99214 ==

== ENCOUNTER 2025-04-09 11:03 | Outpatient (CLI) | payer MEDICARE, SELFPAY ==
[2025-04-09 11:51] LABS: Alanine Aminotransferase 17 U/L (0-33); Albumin Level 4.3 g/dL (3.5-5.2); Alkaline Phosphatase 73 U/L (35-105); Anion Gap 17.5 (5-19); Aspartate Amino Transferase 22 U/L (0-32); Blood Urea Nitrogen 15 mg/dL (8-23); Calcium 9.0 mg/dL (8.5-10.5); Carbon Dioxide 20 mmol/L (22-29); Chloride 99 mmol/L (98-107); Globulin 2.8 g/dL (1.3-4.6); Glucose 99 mg/dL (65-115); Osmolality Calculated 275 mOsm/kg (285-295); Potassium 4.5 mmol/L (3.5-5.1); Sodium 132 mmol/L (136-145); Total Protein 7.1 g/dL (6.6-8.7)
== END 2025-04-09 11:04 | disposition home or self-care (01) ==
PROVIDERS: Family Provider Thoracic Surgery (Cardiothoracic Vascular Surgery); PCP Family Medicine; Visit Provider Internal Medicine
DX: E11.9 Type 2 diabetes mellitus without complications (principal)
CPT/HCPCS: 36415; 80053

== ENCOUNTER → 2025-06-09 15:24 | Outpatient (BNVA) | payer MEDICARE, SELFPAY | PROVIDERS: Family Provider Thoracic Surgery (Cardiothoracic Vascular Surgery); PCP Family Medicine; Visit Provider Nurse Practitioner Family | DX: L60.8 Other nail disorders (principal); D18.01 Hemangioma of skin and subcutaneous tissue; L57.8 Other skin changes due to chronic exposure to nonionizing radiation; L81.4 Other melanin hyperpigmentation; Z08 Encounter for follow-up examination after completed treatment for malignant neoplasm; Z86.006 Personal history of melanoma in-situ | CPT/HCPCS: 99213 ==

== ENCOUNTER 2025-06-24 13:02 | Outpatient (CLI) | payer MEDICARE, SELFPAY ==
[2025-06-24 13:51] LABS: Alanine Aminotransferase 18 U/L (0-33); Albumin Level 4.5 g/dL (3.5-5.2); Alkaline Phosphatase 75 U/L (35-105); Anion Gap 16.8 (5-19); Aspartate Amino Transferase 24 U/L (0-32); Blood Urea Nitrogen 19 mg/dL (8-23); Calcium 9.4 mg/dL (8.5-10.5); Carbon Dioxide 24 mmol/L (22-29); Chloride 98 mmol/L (98-107); Globulin 2.8 g/dL (1.3-4.6); Glucose 107 mg/dL (65-115); Osmolality Calculated 281 mOsm/kg (285-295); Potassium 4.8 mmol/L (3.5-5.1); Sodium 134 mmol/L (136-145); Total Protein 7.3 g/dL (6.6-8.7)
== END 2025-06-24 13:03 | disposition home or self-care (01) ==
PROVIDERS: PCP Family Medicine; Visit Provider Internal Medicine
DX: M81.0 Age-related osteoporosis without current pathological fracture (principal); E55.9 Vitamin D deficiency, unspecified
CPT/HCPCS: 36415; 80053; 82306